=== PATIENT | male | born 1960 | race Caucasian/White ===

== ENCOUNTER → 2016-12-22 | Outpatient (CLI) | payer OTHER ==
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
== END | disposition home or self-care (01) ==
LOC: RADMRIMAIN 20:53
PROVIDERS: ATTEND Family Medicine
DX: M47.22 Other spondylosis with radiculopathy, cervical region (principal); Z98.890 Other specified postprocedural states
CPT/HCPCS: 72156; A9577

== ENCOUNTER 2016-12-26 10:08 | Day surgery (SDC) | payer OTHER ==
[2016-12-21 13:33] VITALS: BMI 24.4
[~2016-12-26 10:08] MED LIST: LACTATED RINGERS 1,000 ML IV SCH; LIDOCAINE 1% 20 ML VIAL (10MG/ML) FOR IV START INTRADERMA PRN
[2016-12-26 10:26] VITALS: TEMP 97.5
[2016-12-26] MEDS ORDERED: LIDOCAINE 1% INJ 10MG/ML (20 ML MDV) ONE (11:08)
[2016-12-26] MEDS ORDERED: PROPOFOL 10 MG/ML 20 ML VIAL IV ONE (11:08)
--- NOTE | 2016-12-26 11:27 | P.GSHP ---
History of Present Illness H&P Date: 12/26/16 Chief Complaint: GERD This is a 56-year-old male referred from Dr. Orlando. Patient presents today for EGD. He has a history of GERD and peptic ulcer disease. 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 , PAIN IN NECK BACK AND LEFT SHOULDER., HERNIA AT UMBILICUS., FREQUENT NIGHT TIME URINATION WITH URGENCY. History of Any Multi-Drug Resistant Organisms: None Reported Past Surgical History: Back Surgery, Hernia Repair, Orthopedic Surgery Additional Past Surgical History / Comment(s): EYE SURGERY (CHILD), LEFT ROTATOR CUFF , NECK SURGERY WITH PLATE & SCREWS, LEFT INGUINAL HERNIA. Past Anesthesia/Blood Transfusion Reactions: No Reported Reaction Past Psychological History: No Psychological Hx Reported Smoking Status: Former smoker Past Alcohol Use History: Occasional Additional Past Alcohol Use History / Comment(s): QUIT SMOKING 8 MONTHS AGO. SMOKED 1 & 1/2 PPD. SMOKED 30-40 YRS. Past Drug Use History: None Reported - Past Family History Father Family Medical History: Myocardial Infarction ([place]) Medications and Allergies Home Medications Medication Instructions Recorded Confirmed Type Cyclobenzaprine [Flexeril] 10 mg PO HS 12/21/16 12/26/16 History HYDROcodone/APAP 10-325MG [[place] 1 tab PO TID PRN 12/21/16 12/26/16 History 10-325] Multivitamins, Thera [Multivitamin] 1 tab PO DAILY 12/21/16 12/21/16 History Omeprazole [PriLOSEC] 20 mg PO AC-BRKFST 12/21/16 12/26/16 History Tamsulosin HCl [Flomax] 0.4 mg PO DIRECTED 12/21/16 12/26/16 History traMADol HCL [Ultram] 50 mg PO DIRECTED PRN 12/21/16 12/26/16 History Allergies Allergy/AdvReac Type Severity Reaction Status Date / Time No Known Allergies Allergy Verified 12/21/16 13:08 Surgical - Exam Vital Signs Temp Pulse Resp BP Pulse Ox 97.5 F L 64 16 152/88 96 12/26/16 10:25 12/26/16 10:25 12/26/16 10:25 12/26/16 10:25 12/26/16 10:25 - General well developed, no distress - Eyes PERRL - ENT normal pinna - Neck no masses - Respiratory normal expansion - Cardiovascular Rhythm: regular - Abdomen Abdomen: soft, non tender Assessment and Plan Plan: GERD. We'll perform EGD
--- NOTE | 2016-12-26 11:35 | P.OP ---
Date of Procedure: 12/26/16 Preoperative Diagnosis: GERD History of peptic ulcer disease Postoperative Diagnosis: Mild antral gastritis No evidence of hiatal hernia Mild esophagitis Procedure(s) Performed: EGD Anesthesia: MAC Surgeon: Sigifredo Karimi Pathology: other (Antrum, esophagus) Disposition: PACU Description of Procedure: The patient's placed on the endoscopy table in the lateral position. He received IV sedation. The gastroscope some placed oropharynx passed in the esophagus and stomach. The scope was then placed through the pylorus. The first and second portion of the duodenum appeared normal. The scope was then brought back into the antrum. This was minimal inflamed a biopsies was performed. The scope was unretroflexed and remainder of the stomach appeared normal. There is no evidence of hiatal hernia. The GE junction was at 47 is. The distal esophagus appeared mildly inflamed a biopsies performed. The proximal esophagus appeared normal. The scope was withdrawn for patient.
[2016-12-26 11:42] VITALS: PULSE 74
[2016-12-26 12:14] VITALS: BP 148/97; RESP 20
--- NOTE | 2016-12-26 17:08 | NM ---
EXAMINATION TYPE: NM hepatobiliary w CCK DATE OF EXAM: 12/26/2016 3:52 PM COMPARISON: NONE HISTORY: 56-year-old male with dull epigastric pain TECHNIQUE: After the intravenous administration of 5.5 mCi Tc 99m Mebrofenin hepatobiliary scintigrap hy is performed. Immediate images post injection. FINDINGS: There is satisfactory initial accumulation of tracer by the liver. The gallbladder is visualized wit hin 8 minutes. The small bowel activity is noted within 90 minutes. At 90 minutes, CCK was administ ered, patient was injected with 1.6 mcg of Kinevac, and gallbladder ejection fraction is calculated a t 89 %, somewhat elevated. IMPRESSION: 1. No scintigraphic evidence for acute/chronic cholecystitis or biliary dyskinesia. 2. However, gallbladder ejection fraction is somewhat elevated. Findings have been described in the s etting of gallbladder hyperkinesia.
== END 2016-12-26 13:41 | disposition home or self-care (01) ==
LOC: ORWHC2ENDO 10:08
PROVIDERS: ATTEND Surgery
DX: K21.0 Gastro-esophageal reflux disease with esophagitis (principal); K29.50 Unspecified chronic gastritis without bleeding; N40.0 Benign prostatic hyperplasia without lower urinary tract symptoms; M54.9 Dorsalgia, unspecified; G89.29 Other chronic pain; Z87.11 Personal history of peptic ulcer disease; Z87.891 Personal history of nicotine dependence; Z79.899 Other long term (current) drug therapy; Z82.49 Family history of ischemic heart disease and other diseases of the circulatory system
CPT/HCPCS: 88305; 78227; 43239; A9537; J2805; J2001; J2704; 99153

== ENCOUNTER → 2017-01-10 | Outpatient (CLI) | payer OTHER ==
--- NOTE | 2017-01-11 21:47 | MR ---
EXAMINATION TYPE: MR lumbar spine wo/w con DATE OF EXAM: 01/10/2017 3:58 PM COMPARISON: NONE HISTORY: Low back pain TECHNIQUE: Multiplanar, multisequence images of the lumbar spine were acquired utilizing 18 mL intravenous Multi Martin gadolinium contrast. L1-L2: Posterior broad-based disc bulge causes minimal anterior mass effect on the thecal sac. No sig nificant foraminal encroachment. L2-L3: Broad-based posterior disc bulge causes mild anterior mass effect on the thecal sac. Circumfer ential extension results in some right-sided foraminal encroachment greater than left. L3-L4: Broad-based posterior disc bulge results in anterior mass effect on the thecal sac causing mil d central stenosis. Circumferential endplate disc complex results in some right-sided greater than le ft foraminal encroachment. Facet arthropathy is present. L4-L5: Posterior broad-based disc bulge causes anterior mass effect on the thecal sac. No significant foraminal encroachment or central stenosis. Facet arthropathy results in lateral recess stenosis L5-S1: Facet arthropathy with hypertrophy ligamentum flavum is present. Posterior broad-based disc bu lge causes mild anterior mass effect on the thecal sac. No significant central stenosis. Lumbar segments are intact. No paraspinal masses are identified. Conus medullaris has a normal appe arance. Loss of intervertebral disc height and signal compatible with disc desiccation, there is mult ilevel spondylosis with endplate discogenic marrow signal change. Cortical cyst associated with the r ight kidney. No abnormal enhancement following contrast administration. IMPRESSION: Degenerative disc disease, multilevel facet arthropathy.
== END | disposition home or self-care (01) ==
LOC: RADMRIMAIN 15:06
PROVIDERS: ATTEND Family Medicine
DX: M51.36 Other intervertebral disc degeneration, lumbar region (principal); M46.86 Other specified inflammatory spondylopathies, lumbar region
CPT/HCPCS: 72158; A9577

== ENCOUNTER → 2017-01-17 | Outpatient (CLI) | payer SELFPAY ==
[2017-01-17 11:27] VITALS: BP 158/90; PULSE 93; RESP 16
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
== END | disposition home or self-care (01) ==
LOC: PNWHC3 11:08
PROVIDERS: ATTEND Specialist
DX: M51.36 Other intervertebral disc degeneration, lumbar region (principal); M47.816 Spondylosis without myelopathy or radiculopathy, lumbar region; M46.96 Unspecified inflammatory spondylopathy, lumbar region; M50.30 Other cervical disc degeneration, unspecified cervical region; M47.812 Spondylosis without myelopathy or radiculopathy, cervical region; M46.92 Unspecified inflammatory spondylopathy, cervical region; M48.02 Spinal stenosis, cervical region; S39.92XA Unspecified injury of lower back, initial encounter; V89.2XXA Person injured in unspecified motor-vehicle accident, traffic, initial encounter; Z87.891 Personal history of nicotine dependence; F12.90 Cannabis use, unspecified, uncomplicated; Z79.891 Long term (current) use of opiate analgesic; K21.9 Gastro-esophageal reflux disease without esophagitis; M19.90 Unspecified osteoarthritis, unspecified site
CPT/HCPCS: 99211

== ENCOUNTER 2017-01-18 06:07 | Day surgery (SDC) | payer OTHER ==
[2017-01-16 13:11] VITALS: BMI 26.4
[~2017-01-18 06:07] MED LIST changes: +DEXAMETHASONE SOD PHOSPHATE 10 MG/ML 1 ML VIAL IV ONE; +HEPARIN SODIUM,PORCINE 5,000 UNIT/ML 1 ML VIAL SQ ONE; +HYDROmorphone 1 MG/ML 1 ML SYRINGE IVP PRN; +ONDANSETRON 4 MG/2 ML VIAL IVP ONE; +SCOPOLAMINE 1.5MG/72HR PATCH TRANSDERM ONE; +ceFAZolin 2 GM in SODIUM CHLORIDE 0.9% 100 ML IVPB ONE
[2017-01-18] MEDS ORDERED: BUPIVACAIN-EPI 0.25%-1:200,000 30 ML VIAL SQ ONE (07:32)
--- NOTE | 2017-01-18 07:40 | P.GSHP ---
History of Present Illness H&P Date: 01/18/17 Chief Complaint: Right upper quadrant pain This a 56-year-old male who presents today for laparoscopic cholecystectomy. Patient's had complaints of right quadrant pain. His recent HIDA scan shows an elevated ejection fraction of 89% consistent with biliary hyperkinesia. - Constitutional Constitutional: Reports as per HPI Past Medical History Past Medical History: GERD/Reflux, Musculoskeletal Disorder, Osteoarthritis (OA) Additional Past Medical History / Comment(s): HERNIATED DISC'S- PLATE & SCREW IN NECK. , PAIN IN NECK BACK AND LEFT SHOULDER., HERNIA AT UMBILICUS., FREQUENT NIGHT TIME URINATION WITH URGENCY. History of Any Multi-Drug Resistant Organisms: None Reported Past Surgical History: Back Surgery, Hernia Repair, Orthopedic Surgery Additional Past Surgical History / Comment(s): EYE SURGERY (CHILD), LEFT ROTATOR CUFF , NECK SURGERY WITH PLATE & SCREWS, LEFT INGUINAL HERNIA. EGD Past Anesthesia/Blood Transfusion Reactions: No Reported Reaction Past Psychological History: No Psychological Hx Reported Smoking Status: Former smoker Past Alcohol Use History: Occasional Additional Past Alcohol Use History / Comment(s): QUIT SMOKING 8 MONTHS AGO. SMOKED 1 & 1/2 PPD. SMOKED 30-40 YRS. Past Drug Use History: None Reported - Past Family History Father Family Medical History: Myocardial Infarction ([place]) Medications and Allergies Home Medications Medication Instructions Recorded Confirmed Type Cyclobenzaprine [Flexeril] 10 mg PO HS 12/21/16 01/18/17 History Multivitamins, Thera [Multivitamin] 1 tab PO DAILY 12/21/16 01/17/17 History Omeprazole [PriLOSEC] 20 mg PO AC-BRKFST 12/21/16 01/17/17 History Tamsulosin HCl [Flomax] 0.4 mg PO BID 12/21/16 01/17/17 History Cyclobenzaprine [Flexeril] 01/17/17 History Allergies Allergy/AdvReac Type Severity Reaction Status Date / Time No Known Allergies Allergy Verified 01/17/17 11:14 Surgical - Exam Vital Signs Temp Pulse Resp BP Pulse Ox 97.2 F L 69 16 132/83 95 01/18/17 06:49 01/18/17 06:49 01/18/17 06:49 01/18/17 06:49 01/18/17 06:49 - General well developed, no distress - Eyes PERRL - ENT normal pinna - Neck no masses - Respiratory normal expansion - Cardiovascular Rhythm: regular - Abdomen Abdomen: soft, non tender Assessment and Plan Plan: Right upper quadrant pain Chronic cholecystitis We'll perform laparoscopic cholecystectomy
[2017-01-18] MEDS ORDERED: NEOSTIGMINE 1 MG/ML 10 ML VIAL ONE (07:46)
[2017-01-18] MEDS ORDERED: fentaNYL (PF) 50 MCG/ML 2 ML AMP ONE (07:46)
[2017-01-18] MEDS ORDERED: MIDAZOLAM 2 MG/2 ML VIAL ONE (07:46)
[2017-01-18] MEDS ORDERED: PROPOFOL 10 MG/ML 20 ML VIAL IV ONE (07:46)
[2017-01-18] MEDS ORDERED: SUCCINYLCHOLINE CHLORIDE 100 MG/5 ML SYR IV ONE (07:46)
[2017-01-18] MEDS ORDERED: KETOROLAC 30 MG/ML 1 ML VIAL ONE (07:46)
[2017-01-18] MEDS ORDERED: GLYCOPYRROLATE 0.2 MG/ML 2 ML VIAL ONE (07:46)
[2017-01-18] MEDS ORDERED: ePHEDrine 50 MG/ML 1 ML AMP ONE (07:46)
[2017-01-18] MEDS ORDERED: LIDOCAINE 1% INJ 10MG/ML (20 ML MDV) ONE (07:46)
[2017-01-18] MEDS ORDERED: ROCURONIUM BROMIDE 10 MG/ML 10 ML VIAL IV ONE (07:46)
--- NOTE | 2017-01-18 08:42 | P.OP ---
Date of Procedure: 01/18/17 Preoperative Diagnosis: Cholecystitis Postoperative Diagnosis: Cholecystitis Procedure(s) Performed: Laparoscopic cholecystectomy Anesthesia: MAC Surgeon: Sigifredo Karimi Pathology: other (Gallbladder) Condition: stable Disposition: PACU Description of Procedure: The patient was placed on the operating table. The patient received a general endotracheal tube anesthesia. The patients abdomen was prepped and draped in the usual sterile fashion. Through an infraumbilical stab incision, the fascia of the anterior abdominal wall was grasped with a pair of Kochers and then the Veress needle was placed in the peritoneal cavity. Position of the Veress needle was confirmed with positive drop test. The abdomen was then insufflated. After adequate insufflation, the 10 mm trocar was placed in the peritoneal cavity. Following this the laparoscope was placed in the peritoneal cavity. The patient was placed in the head-up, right side up position and then a 5 mm trocar was placed in the right lateral and right subcostal position under direct visualization. A 8 mm trocar was placed in the epigastric position. The gallbladder was grasped in the fundus and infundibulum. Traction on the gallbladder was placed in the lateral and the cephalad positions. The triangle of Calot was visualized.. The cystic duct was bluntly dissected until the union of the cystic duct and common bile duct was seen. The cystic duct was then divided and sealed with the Harmonic scissors. A PDS Endoloop was then placed throughout the cystic duct stump. The cystic artery divided and sealed with the Harmonic scissors. The gallbladder was then removed from the liver bed using Harmonic scissors. The gallbladder was then extracted through the epigastric port site. Operative field was checked for any bleeding spots and Harmonic scissors was used to coagulate the liver bed. The abdomen was irrigated. The trocars were removed. The skin was closed using interrupted 3-0 Vicryl suture. Dermabond dressing were applied. The patient tolerated the procedure well.
[2017-01-18] MEDS ORDERED: HYDROmorphone 1 MG/ML 1 ML SYRINGE IVP ONE ×3 (08:53→09:08)
[2017-01-18 08:57] VITALS: TEMP 97
[2017-01-18 09:04] VITALS: RESP 16
[2017-01-18] MEDS ORDERED: LACTATED RINGERS 1,000 ML IV ONE (09:07)
[2017-01-18] MEDS ORDERED: HYDROcodone/APAP 7.5-325MG 1 EACH TAB PO ONE (09:35)
[2017-01-18 10:37] VITALS: BP 127/86; PULSE 64
== END 2017-01-18 11:27 | disposition home or self-care (01) ==
LOC: OR 06:07
PROVIDERS: ATTEND Surgery
DX: K81.1 Chronic cholecystitis (principal); K21.9 Gastro-esophageal reflux disease without esophagitis; M19.90 Unspecified osteoarthritis, unspecified site; G89.29 Other chronic pain; M54.9 Dorsalgia, unspecified; Z79.1 Long term (current) use of non-steroidal anti-inflammatories (NSAID); Z79.891 Long term (current) use of opiate analgesic; Z79.899 Other long term (current) drug therapy; Z87.891 Personal history of nicotine dependence
CPT/HCPCS: 47562; 88304; J2250; J1644; J1100; J2710; J0690; J2405; J2001; J3010; J1885; J1170; J0330; J2704

== ENCOUNTER 2017-02-15 11:12 | Day surgery (SDC) | payer OTHER ==
[2017-02-13 11:21] VITALS: BMI 25.7
[~2017-02-15 11:12] MED LIST changes: -DEXAMETHASONE SOD PHOSPHATE 10 MG/ML 1 ML VIAL IV ONE; -HEPARIN SODIUM,PORCINE 5,000 UNIT/ML 1 ML VIAL SQ ONE; -HYDROmorphone 1 MG/ML 1 ML SYRINGE IVP PRN; -LIDOCAINE 1% 20 ML VIAL (10MG/ML) FOR IV START INTRADERMA PRN; -ONDANSETRON 4 MG/2 ML VIAL IVP ONE; -SCOPOLAMINE 1.5MG/72HR PATCH TRANSDERM ONE; -ceFAZolin 2 GM in SODIUM CHLORIDE 0.9% 100 ML IVPB ONE
[2017-02-15 11:24] VITALS: TEMP 98.2
[2017-02-15] MEDS ORDERED: LIDOCAINE 1% 20 ML VIAL (10MG/ML) FOR IV START INTRADERMA ONE (11:24)
[2017-02-15] MEDS ORDERED: MIDAZOLAM 2 MG/2 ML VIAL ONE (11:49)
[2017-02-15] MEDS ORDERED: fentaNYL (PF) 50 MCG/ML 2 ML AMP ONE (11:49)
[2017-02-15] MEDS ORDERED: BUPIVACAINE (PF) 0.5% 30 ML VIAL ONE (11:49)
[2017-02-15] MEDS ORDERED: TRIAMCINOLONE ACETONIDE 40 MG/ML 1 ML VIAL ONE (11:49)
--- NOTE | 2017-02-15 12:08 | P.PCN ---
Date of Procedure: 02/15/17 Surgeon: Long Cramer Pathology: none sent Condition: stable Disposition: PACU Description of Procedure: PREOPERATIVE DIAGNOSIS: L3-L4, L4-L5, and L5-S1 spondylosis without myelopathy and facet arthropathy. POSTOPERATIVE DIAGNOSIS: L3-L4, L4-L5, and L5-S1 spondylosis without myelopathy and facet arthropathy. PROCEDURE DESCRIPTION: Patient presents for L3, L4 and L5 diagnostic medial branch block #1 under fluoroscopic guidance. The procedure is performed using fluoroscopic guidance during needle placement to assure proper position and maximize safety. ANESTHESIA: Local with 1% lidocaine; conscious sedation EBL: Minimal PROCEDURE INDICATION: Patient with lumbar facet arthropathy signs and symptoms, here for diagnostic medial branch block. Pt does not take any blood thinning medications. PROCEDURE DESCRIPTION: The patient was seen and identified in the preoperative area. Risks, benefits, complications, and alternatives were discussed with the patient (including but not limited to incomplete pain relief, bleeding, infection, nerve damage, and allergies to medications), the patient agreed to proceed with the procedure and signed the consent after all questions were answered. Patient was taken to the OR and time out was completed to verify proper patient, position, laterality of pain, and allergies. Pt was placed in the prone position and a pillow was placed under the abdomen to reduce lumbar lordosis. The lumbosacral area was prepped and draped in the usual sterile fashion. Using oblique fluoroscopy, the eye of the "Gabriel dog" of right L4 vertebral body, which corresponds to the path of the medial branch originating from the level above, which is L3 in this case, was identified. Subsequently, a 22-gauge 3.5-inch spinal needle was inserted under fluoroscopic guidance toward the eye of the "Gabriel dog" of the right L4 vertebral body, corresponding to the junction of the superior articular process and the transverse process of the pedicle of the same level. After needle tip confirmation on lateral view and after negative aspiration for CSF and blood and without paresthesias, 1 mL of a 6 ml solution of 5 ml 0.5% preservative-free bupivacaine and 40 mg Kenalog was injected. Subsequently the needle was withdrawn intact and the same procedure was repeated for the right L4, right L5, left L3, left L4, and left L5 medial branches which together with right L3 medial branch correspond to the sensory innervation of the bilateral L3-L4, L4-L5, and L5-S1 facet joints. Needle was withdrawn intact after each injection. At the end of the procedure, the skin was cleansed and bandages were applied. COMPLICATIONS: None. DISPOSITION/PLAN: The patient taken to the recovery area after the procedure in a stable condition for observation. Patient was reexamined prior to discharge and there were no issues. Patient was discharged home, accompanied by an adult, after meeting discharged criteria. Discharge instructions were give to the patient by the staff. Patient was specifically instructed not to drive today and to rest for the rest of the day. If relief, patient will schedule repeat procedure in 4- 6 weeks.
[2017-02-15] MEDS ORDERED: IV FLUID CONTINUATION 900 ML IV ONE (12:18)
--- NOTE | 2017-02-15 12:20 | FL ---
EXAMINATION TYPE: FL guided pain mgmt statistic DATE OF EXAM: 02/15/2017 12:13 PM HISTORY: Pain BILAT MEDIAL BRANCH BLOCK, FLUORO TIME 8 SEC, 4 IMAGES SCANNED,
[2017-02-15 12:28] VITALS: RESP 18
[2017-02-15 12:38] VITALS: BP 129/87; PULSE 81
== END 2017-02-15 12:58 | disposition home or self-care (01) ==
LOC: ORPAIN 11:12
PROVIDERS: ATTEND Anesthesiology
DX: G89.29 Other chronic pain (principal); M47.816 Spondylosis without myelopathy or radiculopathy, lumbar region; M47.817 Spondylosis without myelopathy or radiculopathy, lumbosacral region; M46.96 Unspecified inflammatory spondylopathy, lumbar region; M51.36 Other intervertebral disc degeneration, lumbar region; M50.30 Other cervical disc degeneration, unspecified cervical region; M47.812 Spondylosis without myelopathy or radiculopathy, cervical region; M46.92 Unspecified inflammatory spondylopathy, cervical region; M48.02 Spinal stenosis, cervical region; Z98.1 Arthrodesis status; M19.90 Unspecified osteoarthritis, unspecified site; K21.9 Gastro-esophageal reflux disease without esophagitis; Z79.891 Long term (current) use of opiate analgesic; Z79.899 Other long term (current) drug therapy; Z87.891 Personal history of nicotine dependence
CPT/HCPCS: 80307; 64493; 64494; 64495; 99152; J2250; J3301; J3010; 80349; 80364

== ENCOUNTER 2017-04-25 22:04 | Emergency (ER) | payer OTHER ==
[2017-04-25 22:30] LABS: Glucose,Whole Blood 94 mg/dL (75-99)
[2017-04-25] MEDS ORDERED: SODIUM CHLORIDE 0.9% 2,000 ML IV ONE (22:56)
[2017-04-25 23:07] LABS: Basophils % (A) 0 %; CH 32.8; CHCM 33.9; Eosinophils # (A) 0.1 k/uL (0-0.7); Eosinophils % (A) 1 %; HCT 40.6 % (39.0-53.0); HDW 2.31; HGB 13.5 gm/dL (13.0-17.5); Luc # (Auto) 0.13; Luc % (Auto) 1; Lymphocytes # (A) 1.6 k/uL (1.0-4.8); Lymphocytes % (A) 15 %; MCH 32.3 pg (25.0-35.0); MCHC 33.3 g/dL (31.0-37.0); MCV 97.1 fL (80.0-100.0); Mean Platelet Volume 6.4; Monocytes # (A) 0.5 k/uL (0-1.0); Monocytes % (A) 5 %; Neutrophils # (A) 7.8 k/uL (1.3-7.7); Neutrophils % (A) 78 %; RBC 4.18 m/uL (4.30-5.90); RDW 13.7 % (11.5-15.5); WBC 10.1 k/uL (3.8-10.6); WBC (Perox) 10.52
[2017-04-25 23:18] LABS: ALT 32 U/L (21-72); AST 29 U/L (17-59); Alkaline Phosphatase 58 U/L (38-126); Anion Gap 14 mmol/L; Blood Urea Nitrogen 13 mg/dL (9-20); Calcium 9.4 mg/dL (8.4-10.2); Carbon Dioxide 22 mmol/L (22-30); Chloride 102 mmol/L (98-107); Glucose 90 mg/dL (74-99); Non-African American GFR(MDRD) >60 (>60 ml/min/1.73 sqM); Potassium 3.8 mmol/L (3.5-5.1); Sodium 138 mmol/L (137-145); Total Bilirubin 1.1 mg/dL (0.2-1.3); Total Protein 7.3 g/dL (6.3-8.2)
--- NOTE | 2017-04-25 23:20 | ED ---
Syncope HPI - General Chief Complaint: Syncope Stated Complaint: Syncope Time Seen by Provider: 04/25/17 22:23 Source: patient Mode of arrival: wheelchair Limitations: no limitations - History of Present Illness Initial Comments: Is a 56-year-old male with no past medical history presents emergency department for an episode of syncope. He states that he was working outside most the day and did not eat or drink most of the day. He states he was having his second bottle of beer sitting on the couch when all of a sudden he started feeling very lightheaded and flushed. He states that this lasted for quite some time and then he was told by his friends that he passed out. He is unsure how long he was out. There was no reported seizure activity. He states he has no history of syncope in the past. He denied any associated chest pressure or shortness of breath prior to the event however afterwards did develop a little bit of chest pressure. He states he still feels very lightheaded at the time. Denies any other complaints. - Related Data Home Medications Medication Instructions Recorded Confirmed Cyclobenzaprine [Flexeril] 10 mg PO TID 12/21/16 02/13/17 Multivitamins, Thera [Multivitamin] 1 tab PO DAILY 12/21/16 02/15/17 Omeprazole [PriLOSEC] 20 mg PO AC-BRKFST 12/21/16 02/13/17 Tamsulosin HCl [Flomax] 0.4 mg PO BID 12/21/16 02/15/17 Previous Rx's Medication Instructions Recorded HYDROcodone/APAP 10-325MG [[place] 1 tab PO Q6HR PRN #120 tab 01/17/17 10-325] Ibuprofen [Motrin] 800 mg PO Q8HR PRN #90 tab 01/17/17 Allergies Allergy/AdvReac Type Severity Reaction Status Date / Time No Known Allergies Allergy Verified 04/25/17 22:21 Review of Systems ROS Statement: Those systems with pertinent positive or pertinent negative responses have been documented in the HPI. ROS Other: All systems not noted in ROS Statement are negative. 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 , PAIN IN NECK BACK AND LEFT SHOULDER., HERNIA AT UMBILICUS., FREQUENT NIGHT TIME URINATION WITH URGENCY. History of Any Multi-Drug Resistant Organisms: None Reported Past Surgical History: Back Surgery, Cholecystectomy, Hernia Repair, Orthopedic Surgery Additional Past Surgical History / Comment(s): EYE SURGERY (CHILD), LEFT ROTATOR CUFF , NECK SURGERY WITH PLATE & SCREWS, LEFT INGUINAL HERNIA. EGD, Colonoscopy Past Anesthesia/Blood Transfusion Reactions: No Reported Reaction Past Psychological History: No Psychological Hx Reported Smoking Status: Former smoker Past Alcohol Use History: Occasional Additional Past Alcohol Use History / Comment(s): QUIT SMOKING 10 MONTHS AGO. SMOKED 1 & 1/2 PPD. SMOKED 30-40 YRS. Past Drug Use History: None Reported - Past Family History Father Family Medical History: Myocardial Infarction ([place]) Additional Family Medical History / Comment(s): "heart problems" General Exam - General Exam Comments Initial Comments: Constitutional: Awake alert Appears comfortable Head: Normocephalic atraumatic Eyes: no conjunctival injection No scleral icterus EOMI Neck: No JVD Supple Heart: Regular rate rhythm normal S1-S2 no murmurs Lungs: Clear to auscultation bilaterally No wheezing No rales Abdomen: Soft nondistended nontender Extremities: Non edematous DP pulses intact Radial pulses intact Neuro: A&Ox3 No focal neurologic deficits Psych: Appropriate mood and affect Limitations: no limitations Course Vital Signs 04/25/17 04/25/17 22:17 22:40 Temperature 97.3 F L Pulse Rate 81 Pulse Rate [ 85 Sitting Hammerer] Pulse Rate [ 86 Standing Hammerer ] Pulse Rate [ 72 Supine Hammerer] Respiratory 16 Rate Blood Pressure 101/55 Blood Pressure 106/68 [Left Arm Sitting] Blood Pressure 106/71 [Left Arm Standing] Blood Pressure 100/63 [Left Arm Supine] O2 Sat by Pulse 96 Oximetry EKG Findings - EKG Comments: EKG Findings:: EKG showing normal sinus rhythm with a rate of 67. No abnormal ST segment changes or T-wave inversions. QTC is 409. Other intervals are normal. No ectopy. Medical Decision Making - Medical Decision Making This is a 56-year-old male presents emergency department for a single episode. Labwork was performed that was unremarkable. The patient received 2 L of fluid while in the emergency department and had much improvement in his symptoms. He states that he was able to stand up and did not feel lightheaded anymore. He states he feels well enough to go home. He is going to follow-up his primary doctor. He can return if he has worsening or changing symptoms or questions were answered. I feel that his syncope is likely due to dehydration from not eating or drinking all day. - Lab Data Result diagrams: 04/25/17 22:34 04/25/17 22:34 Lab Results 04/25/17 04/25/17 04/25/17 Range/Units 22:28 22:34 22:34 WBC 10.1 (3.8-10.6) k/uL RBC 4.18 L (4.30-5.90) m/uL Hgb 13.5 (13.0-17.5) gm/dL Hct 40.6 (39.0-53.0) % MCV 97.1 (80.0-100.0) fL MCH 32.3 (25.0-35.0) pg MCHC 33.3 (31.0-37.0) g/dL RDW 13.7 (11.5-15.5) % Plt Count 315 (150-450) k/uL Neutrophils % 78 % Lymphocytes % 15 % Monocytes % 5 % Eosinophils % 1 % Basophils % 0 % Neutrophils # 7.8 H (1.3-7.7) k/uL Lymphocytes # 1.6 (1.0-4.8) k/uL Monocytes # 0.5 (0-1.0) k/uL Eosinophils # 0.1 (0-0.7) k/uL Basophils # 0.0 (0-0.2) k/uL Sodium 138 (137-145) mmol/L Potassium 3.8 (3.5-5.1) mmol/L Chloride 102 (98-107) mmol/L Carbon Dioxide 22 (22-30) mmol/L Anion Gap 14 mmol/L BUN 13 (9-20) mg/dL Creatinine 1.14 (0.66-1.25) mg/dL Est GFR (MDRD) Af Amer >60 (>60 ml/min/1.73 sqM) Est GFR (MDRD) Non-Af >60 (>60 ml/min/1.73 sqM) Glucose 90 (74-99) mg/dL POC Glucose (mg/dL) 94 (75-99) mg/dL POC Glu Ell Tutor ID MattielyudmilaAdriana Calcium 9.4 (8.4-10.2) mg/dL Total Bilirubin 1.1 (0.2-1.3) mg/dL AST 29 (17-59) U/L ALT 32 (21-72) U/L Alkaline Phosphatase 58 (38-126) U/L Total Creatine Kinase (55-170) U/L CK-MB (CK-2) (0.0-2.4) ng/mL CK-MB (CK-2) Rel Index Troponin I (0.000-0.034) ng/mL Total Protein 7.3 (6.3-8.2) g/dL Albumin 4.8 (3.5-5.0) g/dL 04/25/17 Range/Units 22:34 WBC (3.8-10.6) k/uL RBC (4.30-5.90) m/uL Hgb (13.0-17.5) gm/dL Hct (39.0-53.0) % MCV (80.0-100.0) fL MCH (25.0-35.0) pg MCHC (31.0-37.0) g/dL RDW (11.5-15.5) % Plt Count (150-450) k/uL Neutrophils % % Lymphocytes % % Monocytes % % Eosinophils % % Basophils % % Neutrophils # (1.3-7.7) k/uL Lymphocytes # (1.0-4.8) k/uL Monocytes # (0-1.0) k/uL Eosinophils # (0-0.7) k/uL Basophils # (0-0.2) k/uL Sodium (137-145) mmol/L Potassium (3.5-5.1) mmol/L Chloride (98-107) mmol/L Carbon Dioxide (22-30) mmol/L Anion Gap mmol/L BUN (9-20) mg/dL Creatinine (0.66-1.25) mg/dL Est GFR (MDRD) Af Amer (>60 ml/min/1.73 sqM) Est GFR (MDRD) Non-Af (>60 ml/min/1.73 sqM) Glucose (74-99) mg/dL POC Glucose (mg/dL) (75-99) mg/dL POC Glu Ell Tutor ID Calcium (8.4-10.2) mg/dL Total Bilirubin (0.2-1.3) mg/dL AST (17-59) U/L ALT (21-72) U/L Alkaline Phosphatase (38-126) U/L Total Creatine Kinase 121 (55-170) U/L CK-MB (CK-2) 1.2 (0.0-2.4) ng/mL CK-MB (CK-2) Rel Index 1.0 Troponin I <0.012 (0.000-0.034) ng/mL Total Protein (6.3-8.2) g/dL Albumin (3.5-5.0) g/dL Disposition Clinical Impression: Dehydration, Syncope due to orthostatic hypotension Disposition: HOME SELF-CARE Condition: Stable Instructions: Syncope (ED) Referrals: Pete Orlando Jr, [Primary Care Provider] - 1-2 days
[2017-04-25 23:32] LABS: Creatine Kinase 121 U/L (55-170)
[2017-04-25 23:46] LABS: Creatine Kinase MB 1.2 ng/mL (0.0-2.4); Troponin I <0.012 ng/mL (0.000-0.034)
[2017-04-26 00:28] VITALS: BP 119/79; PULSE 73; RESP 18; TEMP 97.1
== END 2017-04-26 00:26 | disposition home or self-care (01) ==
LOC: EC 22:04
DX: I95.1 Orthostatic hypotension (principal); E86.0 Dehydration; R07.89 Other chest pain; K21.9 Gastro-esophageal reflux disease without esophagitis; M62.9 Disorder of muscle, unspecified; Z87.891 Personal history of nicotine dependence; Z79.899 Other long term (current) drug therapy; Z87.448 Personal history of other diseases of urinary system; Z82.49 Family history of ischemic heart disease and other diseases of the circulatory system
CPT/HCPCS: 36415; 80053; 82550; 82553; 84484; 85025; 93005; 96360; 99284

== ENCOUNTER → 2017-05-15 | Outpatient (CLI) | payer OTHER ==
--- NOTE | 2017-05-15 11:31 | NM ---
EXAMINATION TYPE: NM stress cardiolite complete DATE OF EXAM: 05/15/2017 COMPARISON: NONE HISTORY: Syncope TECHNIQUE: After the intravenous administration of 10.8 mCi Tc 99m Sestamibi - Rest images obtained 45 minutes post injection. The patient exercised using a WAYNE protocol and 1 minute prior to peak exercise was injected with 27.2 mCi Tc 99m Sestamibi - Stress images obtained 5 minutes post injectio n. FINDINGS: There is good uptake of radiopharmaceutical by the left ventricle without fixed defect. The re is no convincing inducible ischemic change. Wall motion is normal ejection fraction is calculated at 63%. IMPRESSION: I DO NOT SEE CONVINCING EVIDENCE OF INDUCIBLE ISCHEMIC CHANGE AT THIS TIME.
--- NOTE | 2017-05-15 11:58 | ECHOF ---
Referral Reason:R55 syncope MEASUREMENTS -------- HEIGHT: 182.9 cm WEIGHT: 86.2 kg BP: RVIDd: 2.8 cm (< 3.3) IVSd: 1.4 cm (0.6 - 1.1) LVIDd: 3.4 cm (3.9 - 5.3) LVPWd: 1.2 cm (0.6 - 1.1) IVSs: 1.4 cm LVIDs: 2.8 cm LVPWs: 1.3 cm LAESV Index (A-L): 24.15 ml/m Ao Diam: 3.7 cm (2.0 - 3.7) AV Cusp: 1.8 cm (1.5 - 2.6) LA Diam: 3.3 cm (2.7 - 3.8) MV EXCURSION: 22.907 mm (> 18.000) MV EF SLOPE: 106 mm/s (70 - 150) EPSS: 0.5 cm MV E Ranjan: 0.58 m/s MV DecT: 219 ms MV A Ranjan: 0.53 m/s MV E/A Ratio: 1.10 RAP: 5.00 mmHg RVSP: 32.43 mmHg FINDINGS -------- Sinus rhythm. This was a technically adequate study. There is mild concentric left ventricular hypertrophy. Overall left ventricular systolic function is low-normal with, an EF between 50 - 55 %. The right ventricle is normal in size. Normal LA size by volume 22+/-6 ml/m2. The right atrial size is normal. The aortic valve is trileaflet, and appears structurally normal. No aortic stenosis or regurgitation. Mild mitral annular calcification present. Mild mitral regurgitation is present. Mild tricuspid regurgitation present. There is no evidence of pulmonary hypertension. The right ventricular systolic pressure, as measured by Doppler, is 32.43mmHg. Trace/mild (physiologic) pulmonic regurgitation. The aortic root size is normal. There is no pericardial effusion. CONCLUSIONS -------- 1. There is mild concentric left ventricular hypertrophy. 2. There is no pericardial effusion. 3. Overall left ventricular systolic function is low-normal with, an EF between 50 - 55 %. 4. Mild mitral annular calcification present. 5. Mild mitral regurgitation is present. 6. Mild tricuspid regurgitation present. 7. There is no evidence of pulmonary hypertension. 8. The right ventricular systolic pressure, as measured by Doppler, is 32.43mmHg. 9. Trace/mild (physiologic) pulmonic regurgitation. 10. The aortic root size is normal. HOUSEKEEPING ASSISTANT: Haylee Mcdowell RDCS
--- NOTE | 2017-05-16 12:23 | PCN ---
DATE OF SERVICE: 05/15/2017 CARDIOLITE STRESS TEST INDICATION: Syncope BASELINE HEART RATE: 63 BASELINE BLOOD PRESSURE: 163.86 MAXIMUM HEART RATE: 150 MAXIMUM BLOOD PRESSURE: 203/100 85% MPHR: 140 100% MPHR: 165 METS: 11,9 MAXIMUM STAGE REACHED: 3 TOTAL EXERCISE TIME: 10:36 Baseline EKG shows sinus rhythm, normal axis, normal interval. Patient exercised on Juanpablo protocol for a total of 10:30 minutes achieving 11.0 METS, 90 % of predicted maximum heart rate without chest pain or diagnostic ST-segment depression. CONCLUSION: 1. Good exercise tolerance. 2. Negative stress test by EKG criteria. 3. Cardiolite portion of this stress test will be reported separately. MTDD
== END | disposition home or self-care (01) ==
LOC: RADNMMAIN 09:04
PROVIDERS: ATTEND Family Medicine
DX: I08.1 Rheumatic disorders of both mitral and tricuspid valves (principal)
CPT/HCPCS: 93017; 93306; 78452; A9500

== ENCOUNTER 2017-07-18 07:59 | Day surgery (SDC) | payer OTHER ==
[2017-07-13 12:14] VITALS: BMI 25.7
[2017-07-18 08:41] VITALS: TEMP 97.1
[2017-07-18] MEDS ORDERED: LIDOCAINE 1% 20 ML VIAL (10MG/ML) FOR IV START INTRADERMA ONE (08:43)
[2017-07-18] MEDS ORDERED: fentaNYL (PF) 50 MCG/ML 2 ML AMP ONE (09:13)
[2017-07-18] MEDS ORDERED: MIDAZOLAM 2 MG/2 ML VIAL ONE (09:13)
[2017-07-18] MEDS ORDERED: GLYCOPYRROLATE 0.2 MG/ML 2 ML VIAL ONE (09:13)
[2017-07-18] MEDS ORDERED: PROPOFOL 10 MG/ML 20 ML VIAL IV ONE (09:13)
[2017-07-18] MEDS ORDERED: LIDOCAINE 1% INJ 10MG/ML (20 ML MDV) ONE (09:13)
--- NOTE | 2017-07-18 09:21 | P.GSHP ---
History of Present Illness H&P Date: 07/18/17 Chief Complaint: GERD, diarrhea This a 56-year-old male who's had issues with GERD. He is also had complaints of abdominal pain and diarrhea. He presents today for EGD colonoscopy. - Constitutional Constitutional: Reports as per HPI Past Medical History Past Medical History: GERD/Reflux, Osteoarthritis (OA) Additional Past Medical History / Comment(s): HERNIATED DISC'S- PLATE & 6 SCREW IN NECK. , FREQUENT NIGHT TIME URINATION WITH URGENCY. hx ulcers, diarrhea/ loose stool, bulging disk in lower back and neck History of Any Multi-Drug Resistant Organisms: None Reported Past Surgical History: Back Surgery, Cholecystectomy, Hernia Repair, Orthopedic Surgery Additional Past Surgical History / Comment(s): EYE SURGERY (CHILD), LEFT ROTATOR CUFF , NECK SURGERY(fusion) WITH PLATE 6 & SCREWS, LEFT INGUINAL HERNIA. EGD, Colonoscopy Past Anesthesia/Blood Transfusion Reactions: No Reported Reaction Past Psychological History: No Psychological Hx Reported Smoking Status: Current every day smoker Past Alcohol Use History: Occasional Additional Past Alcohol Use History / Comment(s): SMOKED 1< 1PPD .SMOKED 30-40 YRS. Past Drug Use History: None Reported - Past Family History Father Family Medical History: Myocardial Infarction ([place]) Additional Family Medical History / Comment(s): "heart problems" Mother Family Medical History: No Reported History Medications and Allergies Home Medications Medication Instructions Recorded Confirmed Type Cyclobenzaprine [Flexeril] 10 mg PO TID PRN 12/21/16 07/13/17 History Multivitamins, Thera [Multivitamin] 1 tab PO DAILY 12/21/16 07/13/17 History Omeprazole [PriLOSEC] 20 mg PO AC-BRKFST 12/21/16 07/13/17 History Tamsulosin HCl [Flomax] 0.4 mg PO BID 12/21/16 07/13/17 History Pregabalin [Lyrica] 50 mg PO BID 07/13/17 07/13/17 History Allergies Allergy/AdvReac Type Severity Reaction Status Date / Time No Known Allergies Allergy Verified 07/13/17 14:39 Surgical - Exam Vital Signs Temp Pulse Resp BP Pulse Ox 97.1 F L 73 18 130/84 95 07/18/17 08:38 07/18/17 08:38 07/18/17 08:38 07/18/17 08:38 07/18/17 08:38 - General well developed, no distress - Eyes PERRL - ENT normal pinna - Neck no masses - Respiratory normal expansion - Abdomen Abdomen: soft, non tender Assessment and Plan Plan: GERD, diarrhea. We'll perform EGD and colonoscopy
--- NOTE | 2017-07-18 09:37 | P.OP ---
Date of Procedure: 07/18/17 Preoperative Diagnosis: GERD Diarrhea Postoperative Diagnosis: Antral gastritis No hiatal hernia Mild esophagitis Normal colon Procedure(s) Performed: EGD Colonoscopy Implants: Anesthesia: MAC Surgeon: Sigifredo Karimi Pathology: other (Antrum, esophagus) Condition: stable Disposition: PACU Indications for Procedure: Operative Findings: Description of Procedure: M PROCEDURE: The patient was placed on the endoscopy table in the lateral position. Digital rectal examination was performed which revealed no abnormalities. The prostate was symmetrical without nodules. Flexible colonoscope was then placed in the patient's anus and passed throughout the entire colon. The ileocecal valve was visualized. The cecum, ascending, transverse, descending and sigmoid colon were normal. The rectum was normal as well. There were no masses, polyps or diverticula noted in the entire colon. Next, the gastroscope was placed oropharynx passed in the esophagus and into the stomach. Scope was then placed through the pylorus. The first and second portion of the duodenum appeared normal. Scope was then brought back the antrum and this appeared mildly inflamed. A biopsies performed. The scope was retroflexed and remainder of the stomach appeared normal. There is no significant hiatal hernia. GE junction was at 40 cm. The distal esophagus appeared mildly inflamed a biopsies performed. The proximal esophagus appeared normal. Scope was withdrawn for patient.
[2017-07-18 09:44] VITALS: RESP 16
[2017-07-18 09:54] VITALS: BP 126/88; PULSE 80
== END 2017-07-18 10:11 | disposition home or self-care (01) ==
LOC: ORWHC2ENDO 07:59
PROVIDERS: ATTEND Surgery
DX: K29.70 Gastritis, unspecified, without bleeding (principal); R19.7 Diarrhea, unspecified; M19.90 Unspecified osteoarthritis, unspecified site; F17.200 Nicotine dependence, unspecified, uncomplicated; N40.0 Benign prostatic hyperplasia without lower urinary tract symptoms; Z79.899 Other long term (current) drug therapy
CPT/HCPCS: 88305; 88342; 45378; 43239; J2250; J2001; J3010; J2704

== ENCOUNTER 2017-07-24 06:34 | Day surgery (SDC) | payer OTHER ==
[2017-07-13 14:51] VITALS: BMI 25.7
[~2017-07-24 06:34] MED LIST changes: +DEXAMETHASONE SOD PHOSPHATE 10 MG/ML 1 ML VIAL IV ONE; +HEPARIN SODIUM,PORCINE 5,000 UNIT/ML 1 ML VIAL SQ ONE; +HYDROmorphone 1 MG/ML 1 ML SYRINGE IVP PRN; +LIDOCAINE 1% 20 ML VIAL (10MG/ML) FOR IV START INTRADERMA PRN; +ONDANSETRON 4 MG/2 ML VIAL IVP ONE; +SCOPOLAMINE 1.5MG/72HR PATCH TRANSDERM ONE; +ceFAZolin 2 GM in SODIUM CHLORIDE 0.9% 100 ML IVPB ONE
[2017-07-24 06:47] VITALS: RESP 16
--- NOTE | 2017-07-24 08:00 | P.GSHP ---
History of Present Illness H&P Date: 07/24/17 Chief Complaint: Incarcerated umbilical hernia This a 56-year-old male who's had complete abdominal pain. Patient seen in the office found have an incarcerated local hernia. He returns today for laparoscopic robotic assistance repair. 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 , FREQUENT NIGHT TIME URINATION WITH URGENCY. hx ulcers, diarrhea/ loose stool, bulging disk in lower back and neck History of Any Multi-Drug Resistant Organisms: None Reported Past Surgical History: Back Surgery, Cholecystectomy, Hernia Repair, Orthopedic Surgery Additional Past Surgical History / Comment(s): EYE SURGERY (CHILD), LEFT ROTATOR CUFF , NECK SURGERY(fusion) WITH PLATE 6 & SCREWS, LEFT INGUINAL HERNIA. EGD, Colonoscopy Past Anesthesia/Blood Transfusion Reactions: No Reported Reaction Past Psychological History: No Psychological Hx Reported Smoking Status: Current every day smoker Past Alcohol Use History: Occasional Additional Past Alcohol Use History / Comment(s): SMOKED 1< 1PPD .SMOKED 30-40 YRS. Past Drug Use History: None Reported - Past Family History Father Family Medical History: Myocardial Infarction ([place]) Additional Family Medical History / Comment(s): "heart problems" Mother Family Medical History: No Reported History Medications and Allergies Home Medications Medication Instructions Recorded Confirmed Type Cyclobenzaprine [Flexeril] 10 mg PO TID PRN 12/21/16 07/24/17 History Multivitamins, Thera [Multivitamin] 1 tab PO DAILY 12/21/16 07/13/17 History Omeprazole [PriLOSEC] 20 mg PO AC-BRKFST 12/21/16 07/24/17 History Tamsulosin HCl [Flomax] 0.4 mg PO BID 12/21/16 07/24/17 History HYDROcodone/APAP 10-325MG [[place] 1 tab PO Q6HR PRN #120 tab 01/17/17 07/24/17 Rx 10-325] Ibuprofen [Motrin] 800 mg PO Q8HR PRN #90 tab 01/17/17 07/13/17 Rx Pregabalin [Lyrica] 50 mg PO BID 07/13/17 07/24/17 History Allergies Allergy/AdvReac Type Severity Reaction Status Date / Time No Known Allergies Allergy Verified 07/13/17 14:39 Surgical - Exam Vital Signs Temp Pulse Resp BP Pulse Ox 98.3 F 78 16 116/72 95 07/24/17 06:45 07/24/17 06:45 07/24/17 06:45 07/24/17 06:45 07/24/17 06:45 - General well developed, no distress - Eyes PERRL - ENT normal pinna, normal nares - Neck no masses - Respiratory normal expansion - Cardiovascular Rhythm: regular - Abdomen Abdomen: soft, non tender Hernia: umbilical (Incarcerated) Assessment and Plan Plan: Incarcerated umbilical hernia. We'll perform laparoscopic robotic assistance repair.
[2017-07-24] MEDS ORDERED: MIDAZOLAM 2 MG/2 ML VIAL ONE (08:03)
[2017-07-24] MEDS ORDERED: NEOSTIGMINE 1 MG/ML 10 ML VIAL ONE (08:03)
[2017-07-24] MEDS ORDERED: KETOROLAC 30 MG/ML 1 ML VIAL ONE (08:03)
[2017-07-24] MEDS ORDERED: fentaNYL (PF) 50 MCG/ML 2 ML AMP ONE (08:03)
[2017-07-24] MEDS ORDERED: GLYCOPYRROLATE 0.2 MG/ML 2 ML VIAL ONE (08:03)
[2017-07-24] MEDS ORDERED: ROCURONIUM BROMIDE 10 MG/ML 10 ML VIAL IV ONE (08:03)
[2017-07-24] MEDS ORDERED: ePHEDrine SULFATE/0.9% NACL/PF 50 MG/5 ML SYRINGE IV ONE (08:03)
[2017-07-24] MEDS ORDERED: LIDOCAINE 1% INJ 10MG/ML (20 ML MDV) ONE (08:03)
[2017-07-24] MEDS ORDERED: PROPOFOL 10 MG/ML 20 ML VIAL IV ONE (08:03)
[2017-07-24] MEDS ORDERED: SUCCINYLCHOLINE CHLORIDE VIAL 200 MG/10 ML VIAL IV ONE (08:03)
[2017-07-24] MEDS ORDERED: LACTATED RINGERS 1,000 ML IV ONE (08:39)
[2017-07-24] MEDS ORDERED: LIDOCAINE 2%-EPI 1:100,000 20 ML VIAL SQ ONE (08:54)
[2017-07-24] MEDS ORDERED: BUPIVACAINE (PF) 0.25% 30 ML VIAL SQ ONE (08:54)
[2017-07-24] MEDS ORDERED: HYDROmorphone 1 MG/ML 1 ML SYRINGE IVP ONE ×5 (09:30→09:54)
[2017-07-24 09:31] VITALS: TEMP 97.9
--- NOTE | 2017-07-24 09:38 | P.OP ---
Date of Procedure: 07/24/17 Preoperative Diagnosis: Incarcerated umbilical hernia Postoperative Diagnosis: Incarcerated umbilical hernia Procedure(s) Performed: Bhavik robotic-assisted repair of incarcerated umbilical hernia Implants: Anesthesia: REGAN Surgeon: Sigifredo Karimi Estimated Blood Loss (ml): 5 Pathology: none sent Condition: stable Disposition: PACU Indications for Procedure: Operative Findings: Description of Procedure: The patient's placed on the operative table in the supine position. He received general anesthesia. His abdomen was prepped and draped in the usual technique. The skin incision sites were anesthetized 1% local Xylocaine. Using 11 blade the skin was incised in the left upper quadrant. And then using an optical 5 mm trocar the pleural cavity was entered. After adequate insufflation the laparoscope placed back into the cavity. And then the 8 mm robotic trochars placed in the left lower quadrant and a 12 mm robotic trochars placed in the left lateral position. The original 5 mm trocar was exchanged for an 8 mm robotic trocar. The patient was then docked to the robot. The patient had incarcerated peritoneal fat in the umbilical hernia. Using hook cautery this was dissected free. The fascial defect was then closed using OV lock suture. Next using a 11 cm round ventral light ST mesh the mesh was secured abdominal wall using 2OV lock lock suture. The patient was then undocked the robot. The needles were retrieved. The fascia of the 12 mm trocar site was closed with a Taye Garzon suture passer and 0 Ethibond suture. The skin was closed interrupted 3-0 Monocryl suture. Dermabond was applied. Patient was sent to recovery in stable condition.
[2017-07-24] MEDS ORDERED: HYDROcodone/APAP 7.5-325MG 1 EACH TAB PO ONE (10:40)
[2017-07-24 11:44] VITALS: BP 146/82; PULSE 66
== END 2017-07-24 12:06 | disposition home or self-care (01) ==
LOC: OR 06:34
PROVIDERS: ATTEND Surgery
DX: K42.0 Umbilical hernia with obstruction, without gangrene (principal); K21.9 Gastro-esophageal reflux disease without esophagitis; F17.200 Nicotine dependence, unspecified, uncomplicated; M19.90 Unspecified osteoarthritis, unspecified site; Z79.899 Other long term (current) drug therapy
CPT/HCPCS: 49653; S2900

== ENCOUNTER 2018-06-14 15:01 | Observation (INO) | payer OTHER ==
[2018-06-14 15:31] LABS: Basophils % (A) 0 %; Eosinophils # (A) 0.1 k/uL (0-0.7); Eosinophils % (A) 2 %; HCT 42.2 % (39.0-53.0); HGB 13.8 gm/dL (13.0-17.5); Lymphocytes # (A) 1.4 k/uL (1.0-4.8); Lymphocytes % (A) 20 %; MCH 31.6 pg (25.0-35.0); MCHC 32.7 g/dL (31.0-37.0); MCV 96.8 fL (80.0-100.0); Mean Platelet Volume 6.3; Monocytes # (A) 0.3 k/uL (0-1.0); Monocytes % (A) 5 %; Neutrophils # (A) 5.1 k/uL (1.3-7.7); Neutrophils % (A) 72 %; Platelet Count 295 k/uL (150-450); RBC 4.36 m/uL (4.30-5.90); RDW 12.7 % (11.5-15.5); WBC 7.1 k/uL (3.8-10.6)
--- NOTE | 2018-06-14 15:37 | ED ---
General Adult HPI - General Chief complaint: Syncope Stated complaint: syncope Time Seen by Provider: 06/14/18 15:19 Source: patient, family, EMS, RN notes reviewed, old records reviewed Mode of arrival: EMS Limitations: no limitations - History of Present Illness Initial comments: 57-year-old male presents for evaluation of syncopal episode. Patient was at the bar, he had had 2 alcoholic drinks. He began feeling very lightheaded with some nausea and the next thing he remembers he was on the floor surrounded by friends. According to his family member he was unconscious just momentarily. He was diaphoretic. Patient denies any chest pain complaints. Denied preceding chest pain or palpitations. No history of cardiac disease. No history of arrhythmia. Patient has chronic medical problems including chronic pain, no history diabetes, no history of kidney disease or heart disease. Patient is to drinking 2 alcoholic beverages which is not atypical. And he ate only a small breakfast. - Related Data Home Medications Medication Instructions Recorded Confirmed Cyclobenzaprine [Flexeril] 10 mg PO TID PRN 12/21/16 06/14/18 Multivitamins, Thera [Multivitamin] 1 tab PO DAILY 12/21/16 06/14/18 Omeprazole [PriLOSEC] 20 mg PO AC-BRKFST 12/21/16 06/14/18 Tamsulosin HCl [Flomax] 0.4 mg PO BID 12/21/16 06/14/18 Pregabalin [Lyrica] 150 mg PO TID PRN 06/14/18 06/14/18 Previous Rx's Medication Instructions Recorded Ibuprofen [Motrin] 800 mg PO Q8HR PRN #90 tab 01/17/17 Allergies Allergy/AdvReac Type Severity Reaction Status Date / Time No Known Allergies Allergy Verified 06/14/18 15:46 Review of Systems ROS Statement: Those systems with pertinent positive or pertinent negative responses have been documented in the HPI. ROS Other: All systems not noted in ROS Statement are negative. 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 , FREQUENT NIGHT TIME URINATION WITH URGENCY. hx ulcers, diarrhea/ loose stool, bulging disk in lower back and neck History of Any Multi-Drug Resistant Organisms: None Reported Past Surgical History: Back Surgery, Cholecystectomy, Hernia Repair, Orthopedic Surgery Additional Past Surgical History / Comment(s): EYE SURGERY (CHILD), LEFT ROTATOR CUFF , NECK SURGERY(fusion) WITH PLATE 6 & SCREWS, LEFT INGUINAL HERNIA. EGD, Colonoscopy Past Anesthesia/Blood Transfusion Reactions: No Reported Reaction Past Psychological History: No Psychological Hx Reported Smoking Status: Current every day smoker Past Alcohol Use History: Occasional Past Drug Use History: None Reported, Marijuana - Past Family History Father Family Medical History: Myocardial Infarction ([place]) Additional Family Medical History / Comment(s): "heart problems" Mother Family Medical History: No Reported History General Exam Limitations: no limitations General appearance: alert, in no apparent distress Head exam: Present: atraumatic, normocephalic Eye exam: Present: normal appearance, PERRL, EOMI Neck exam: Present: tenderness, full ROM Respiratory exam: Present: normal lung sounds bilaterally. Absent: respiratory distress, wheezes, rales Cardiovascular Exam: Present: regular rate, normal rhythm GI/Abdominal exam: Present: soft. Absent: distended, tenderness, guarding Extremities exam: Present: normal inspection, full ROM, normal capillary refill. Absent: pedal edema Neurological exam: Present: alert, oriented X3, CN II-XII intact. Absent: motor sensory deficit Psychiatric exam: Present: normal affect, normal mood Skin exam: Present: warm, intact, diaphoretic Course Vital Signs 06/14/18 06/14/18 06/14/18 15:02 15:40 16:39 Temperature 98.7 F Pulse Rate 85 69 Pulse Rate [ 77 Sitting] Pulse Rate [ 104 H Standing] Pulse Rate [ 65 Supine] Respiratory 18 Rate Blood Pressure 108/67 128/72 Blood Pressure 110/71 [Sitting] Blood Pressure 109/70 [Standing] Blood Pressure 106/64 [Supine] O2 Sat by Pulse 92 L 96 Oximetry EKG Findings - EKG Comments: EKG Findings:: EKG: Normal sinus rhythm, rate is 74, no ST segment elevation, there is artifact in multiple leads although overall this appears nonischemic. RI interval 168, QRS duration 86, QTC 437 Medical Decision Making - Medical Decision Making 57 yo male with syncopal episode. There is history to support some volume depletion. Orthostatic vital signs are positive, blood pressure remains stable however heart rate increases by 40 bpm. He receives IV hydration in the emergency department. Laboratory studies reveal normal CBC, normal CMP, negative troponin. Head CT and C-spine is obtained patient did have a fall, although there was no reported trauma he was complaining of a headache. CT head is negative for intracranial hemorrhage, CT cervical spine shows postsurgical changes with no acute fracture or subluxation. Patient remains symptomatic on reevaluation despite 1500 mL of normal saline. He will be kept in observation for continued IV hydration and reevaluation. - Lab Data Result diagrams: 06/14/18 15:13 06/14/18 15:13 Lab Results 06/14/18 06/14/18 06/14/18 Range/Units 15:13 15:13 15:13 WBC 7.1 (3.8-10.6) k/uL RBC 4.36 (4.30-5.90) m/uL Hgb 13.8 (13.0-17.5) gm/dL Hct 42.2 (39.0-53.0) % MCV 96.8 (80.0-100.0) fL MCH 31.6 (25.0-35.0) pg MCHC 32.7 (31.0-37.0) g/dL RDW 12.7 (11.5-15.5) % Plt Count 295 (150-450) k/uL Neutrophils % 72 % Lymphocytes % 20 % Monocytes % 5 % Eosinophils % 2 % Basophils % 0 % Neutrophils # 5.1 (1.3-7.7) k/uL Lymphocytes # 1.4 (1.0-4.8) k/uL Monocytes # 0.3 (0-1.0) k/uL Eosinophils # 0.1 (0-0.7) k/uL Basophils # 0.0 (0-0.2) k/uL PT (9.0-12.0) sec INR (<1.2) APTT (22.0-30.0) sec Sodium 138 (137-145) mmol/L Potassium 4.1 (3.5-5.1) mmol/L Chloride 106 (98-107) mmol/L Carbon Dioxide 20 L (22-30) mmol/L Anion Gap 12 mmol/L BUN 14 (9-20) mg/dL Creatinine 1.18 (0.66-1.25) mg/dL Est GFR (CKD-EPI)AfAm 79 (>60 ml/min/1.73 sqM) Est GFR (CKD-EPI)NonAf 69 (>60 ml/min/1.73 sqM) Glucose 145 H (74-99) mg/dL Calcium 9.1 (8.4-10.2) mg/dL Magnesium 2.0 (1.6-2.3) mg/dL Total Bilirubin 0.9 (0.2-1.3) mg/dL AST 23 (17-59) U/L ALT 28 (21-72) U/L Alkaline Phosphatase 58 (38-126) U/L Total Creatine Kinase 58 (55-170) U/L CK-MB (CK-2) 0.4 (0.0-2.4) ng/mL CK-MB (CK-2) Rel Index 0.7 Troponin I <0.012 (0.000-0.034) ng/mL Total Protein 5.9 L (6.3-8.2) g/dL Albumin 3.9 (3.5-5.0) g/dL Serum Alcohol mg/dL 06/14/18 06/14/18 Range/Units 15:13 15:13 WBC (3.8-10.6) k/uL RBC (4.30-5.90) m/uL Hgb (13.0-17.5) gm/dL Hct (39.0-53.0) % MCV (80.0-100.0) fL MCH (25.0-35.0) pg MCHC (31.0-37.0) g/dL RDW (11.5-15.5) % Plt Count (150-450) k/uL Neutrophils % % Lymphocytes % % Monocytes % % Eosinophils % % Basophils % % Neutrophils # (1.3-7.7) k/uL Lymphocytes # (1.0-4.8) k/uL Monocytes # (0-1.0) k/uL Eosinophils # (0-0.7) k/uL Basophils # (0-0.2) k/uL PT 10.4 (9.0-12.0) sec INR 1.1 (<1.2) APTT 22.9 (22.0-30.0) sec Sodium (137-145) mmol/L Potassium (3.5-5.1) mmol/L Chloride (98-107) mmol/L Carbon Dioxide (22-30) mmol/L Anion Gap mmol/L BUN (9-20) mg/dL Creatinine (0.66-1.25) mg/dL Est GFR (CKD-EPI)AfAm (>60 ml/min/1.73 sqM) Est GFR (CKD-EPI)NonAf (>60 ml/min/1.73 sqM) Glucose (74-99) mg/dL Calcium (8.4-10.2) mg/dL Magnesium (1.6-2.3) mg/dL Total Bilirubin (0.2-1.3) mg/dL AST (17-59) U/L ALT (21-72) U/L Alkaline Phosphatase (38-126) U/L Total Creatine Kinase (55-170) U/L CK-MB (CK-2) (0.0-2.4) ng/mL CK-MB (CK-2) Rel Index Troponin I (0.000-0.034) ng/mL Total Protein (6.3-8.2) g/dL Albumin (3.5-5.0) g/dL Serum Alcohol <10 mg/dL Disposition Clinical Impression: Dehydration, Syncope due to orthostatic hypotension Disposition: ADMITTED IP TO THIS HOSP Condition: Stable Is patient prescribed a controlled substance at d/c from ED?: No Referrals: Pete Orlando Jr, [Primary Care Provider] - 1-2 days Time of Disposition: 16:49
[2018-06-14 15:40] LABS: Albumin 3.9 g/dL (3.5-5.0); Calcium 9.1 mg/dL (8.4-10.2); INR 1.1 (<1.2); Partial Thromboplastin Time 22.9 sec (22.0-30.0); Potassium 4.1 mmol/L (3.5-5.1); Prothrombin Time 10.4 sec (9.0-12.0); Total Bilirubin 0.9 mg/dL (0.2-1.3); Total Protein 5.9 g/dL (6.3-8.2)
[2018-06-14 15:44] LABS: Creatine Kinase 58 U/L (55-170)
[2018-06-14 15:58] LABS: Creatine Kinase MB 0.4 ng/mL (0.0-2.4); Troponin I <0.012 ng/mL (0.000-0.034)
[2018-06-14] MEDS ORDERED: SODIUM CHLORIDE 0.9% 1,000 ML IV ONE (16:09)
--- NOTE | 2018-06-14 16:21 | XR ---
EXAMINATION TYPE: XR chest 2V DATE OF EXAM: 06/14/2018 COMPARISON: None INDICATION: Syncope TECHNIQUE: Frontal and lateral views of the chest are obtained. FINDINGS: The heart size is normal. The pulmonary vasculature is normal. The lungs are clear. IMPRESSION: 1. No acute pulmonary process.
--- NOTE | 2018-06-14 16:38 | CT ---
EXAMINATION TYPE: CT brain pipe wo con DATE OF EXAM: 06/14/2018 COMPARISON: 10/25/2012 HISTORY: Pain CT DLP: 1651 mGycm, Automated exposure control for dose reduction was used. CONTRAST: None CT of the brain is performed utilizing 3 mm thick sections through the posterior fossa and 3 mm thick sections through the remaining calvarium. Study is performed within 24 hours of arrival to the hospital. No abnormal hyperdensity is present to suggest an acute intracranial hemorrhage. No mass lesion is evident. No acute infarcts are evident. Ventricles and sulci are appropriate for the patient age. Paranasal sinuses and mastoid air cells within the [id number] are clear. IMPRESSIONS: 1. Normal CT brain. CT cervical spine. COMPARISON: None CT of the cervical spine is performed in the axial plane at 2 mm thick sections. Reconstructed image s in the coronal, and sagittal plane are reviewed on the computer. No acute fractures are evident. Vertebral body alignment is straightened Diffuse narrowing of disc height is present. There is cervical fusion at C5-C7 with loss of disc heig ht. Vertebral body heights are preserved. No spinal canal stenosis is evident. Right foraminal stenosis due to uncovertebral joint hypertrophy and facet hypertrophy is present C2-3 . Mild facet hypertrophy is present C3-4 bilaterally. There is anterior cervical fusion C5-C7. Uncove rtebral joint hypertrophy C6-7 has mild bilateral foraminal stenosis. Findings appear stable from com parison. IMPRESSIONS: 1. Degenerative changes and postsurgical change. No acute osseous abnormality cervical spine is evide nt.
[2018-06-14] MEDS ORDERED: NALOXONE 0.4 MG/ML 1 ML VIAL IV PRN (16:50)
[2018-06-14] MEDS: SODIUM CHLORIDE 0.9% 1,000 ML IV SCH (17:40)
[2018-06-14] MEDS: IBUPROFEN 400 MG TAB PO PRN ×2 (18:26→22:28)
[2018-06-14] MEDS: ACETAMINOPHEN TAB 325 MG TAB PO PRN (21:29)
[2018-06-14] MEDS ORDERED: CYCLOBENZAPRINE 10 MG TAB PO PRN (22:12)
[2018-06-14] MEDS: PREGABALIN 75 MG CAP PO PRN (22:28)
[2018-06-15] MEDS: SODIUM CHLORIDE 0.9% 1,000 ML IV SCH ×2 (02:56→12:56)
[2018-06-15] MEDS: ACETAMINOPHEN TAB 325 MG TAB PO PRN (06:25)
[2018-06-15 08:21] LABS: Basophils % (A) 0 %; Eosinophils # (A) 0.1 k/uL (0-0.7); Eosinophils % (A) 1 %; HCT 41.3 % (39.0-53.0); HGB 13.3 gm/dL (13.0-17.5); Lymphocytes # (A) 1.4 k/uL (1.0-4.8); Lymphocytes % (A) 20 %; MCHC 32.3 g/dL (31.0-37.0); MCV 95.9 fL (80.0-100.0); Mean Platelet Volume 6.6; Monocytes # (A) 0.4 k/uL (0-1.0); Monocytes % (A) 6 %; Neutrophils # (A) 4.8 k/uL (1.3-7.7); Neutrophils % (A) 70 %; Platelet Count 271 k/uL (150-450); RDW 12.6 % (11.5-15.5); WBC 6.8 k/uL (3.8-10.6)
[2018-06-15 08:25] LABS: ALT 30 U/L (21-72); AST 17 U/L (17-59); Albumin 3.2 g/dL (3.5-5.0); Alkaline Phosphatase 54 U/L (38-126); Anion Gap 5 mmol/L; Blood Urea Nitrogen 14 mg/dL (9-20); Calcium 8.7 mg/dL (8.4-10.2); Carbon Dioxide 22 mmol/L (22-30); Chloride 113 mmol/L (98-107); Glucose 92 mg/dL (74-99); Potassium 4.5 mmol/L (3.5-5.1); Sodium 140 mmol/L (137-145); Total Bilirubin 0.4 mg/dL (0.2-1.3); Total Protein 5.3 g/dL (6.3-8.2)
[2018-06-15] MEDS: TAMSULOSIN 0.4 MG CAP.ER.24H PO SCH ×2 (09:06→20:56)
[2018-06-15] MEDS: PANTOPRAZOLE 40 MG TABLET PO SCH (09:35)
--- NOTE | 2018-06-15 10:38 | P.HPIM ---
History of Present Illness H&P Date: 06/15/18 Chief Complaint: Syncope This is a pleasant 57-year-old white male. He sees my partner, Dr. Pete Orlando. Yesterday, while having lunch of 3 barbecue pork sliders, and 2 rum and Cokes, he began feeling shaky and weak. His friends report his left arm trembling. This went on for 10 minutes or so. He tried some orange juice. He eventually fell off his barstool and his friends lowered him to the ground. He had a loss of consciousness for a moment or 2. He felt cold, nauseated and sweaty. He denied any chest pains, pressures, palpitations,, or vomiting at that time. He denied any confusion around the episode. Indicates he was able to answer all the questions his friends were asking him. He states his friends indicated no tonic clonic type activity. He was then brought to the emergency room via EMS. He was found to be hypotensive initially, which resolved. ER physician reports less trouble positive orthostatic blood pressures. Patient reports his glucose was 140 per the EMS Tech. Reports a similar episode several months ago. He had a 2-D echo and Cardiolite stress test 05/15/2017 which were essentially negative. 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 , FREQUENT NIGHT TIME URINATION WITH URGENCY. hx ulcers, diarrhea/ loose stool, bulging disk in lower back and neck, lt lazy eye History of Any Multi-Drug Resistant Organisms: None Reported Past Surgical History: Back Surgery, Cholecystectomy, Hernia Repair, Orthopedic Surgery Additional Past Surgical History / Comment(s): EYE SURGERY (CHILD), LEFT ROTATOR CUFF , NECK SURGERY(fusion) WITH PLATE 6 & SCREWS, LEFT INGUINAL HERNIA. EGD, Colonoscopy, umb hernia repair Past Anesthesia/Blood Transfusion Reactions: No Reported Reaction Smoking Status: Current every day smoker - Past Family History Father Family Medical History: Myocardial Infarction ([place]) Additional Family Medical History / Comment(s): "heart problems" Mother Family Medical History: No Reported History Medications and Allergies Home Medications Medication Instructions Recorded Confirmed Type Cyclobenzaprine [Flexeril] 10 mg PO TID PRN 12/21/16 06/14/18 History Multivitamins, Thera [Multivitamin] 1 tab PO DAILY 12/21/16 06/14/18 History Omeprazole [PriLOSEC] 20 mg PO AC-BRKFST 12/21/16 06/14/18 History Tamsulosin HCl [Flomax] 0.4 mg PO BID 12/21/16 06/14/18 History Ibuprofen [Motrin] 800 mg PO Q8HR PRN #90 tab 01/17/17 06/14/18 Rx Pregabalin [Lyrica] 150 mg PO TID PRN 06/14/18 06/14/18 History Allergies Allergy/AdvReac Type Severity Reaction Status Date / Time No Known Allergies Allergy Verified 06/14/18 15:46 Physical Exam Vitals: Vital Signs Temp Pulse Pulse Pulse Pulse Resp BP 06/15/18 09:32 06/15/18 06:49 96.9 F L 60 18 06/15/18 00:00 20 06/14/18 21:00 98 F 75 20 06/14/18 18:29 98.0 F 67 18 152/89 06/14/18 17:09 68 18 132/87 06/14/18 16:39 69 128/72 06/14/18 15:40 77 104 H 65 06/14/18 15:02 98.7 F 85 18 108/67 BP BP BP BP Pulse Ox 06/15/18 09:32 96 06/15/18 06:49 129/75 96 06/15/18 00:00 06/14/18 21:00 128/81 96 06/14/18 18:29 97 06/14/18 17:09 98 06/14/18 16:39 96 06/14/18 15:40 110/71 109/70 106/64 06/14/18 15:02 92 L Intake and Output 06/14/18 06/15/18 06/15/18 22:59 06:59 14:59 Intake Total 200 Balance 200 Intake: Oral 200 Other: Weight 94.347 kg 94.347 kg GENERAL: Well-appearing, well-nourished and in no acute distress. HEAD: Atraumatic, normocephalic. EYES: Pupils equal round and reactive to light, extraocular movements intact, sclera anicteric, conjunctiva are normal. ENT:nares patent, oropharynx clear without exudates. Moist mucous membranes. NECK: Normal range of motion, supple without lymphadenopathy or JVD, no thyromegaly LUNGS: Breath sounds clear to auscultation bilaterally and equal. No wheezes rales or rhonchi. HEART: Regular rate and rhythm without murmurs, rubs or gallops.S1S2 Normal ABDOMEN: Soft, nontender, normoactive bowel sounds. No guarding, no rebound. No masses appreciated. EXTREMITIES: Normal range of motion, no pitting or edema. No clubbing or cyanosis. NEUROLOGICAL: Cranial nerves II through XII grossly intact. Normal speech, normal gait. PSYCH: Normal mood, normal affect. SKIN: Warm, Dry, normal turgor, no rashes or lesions noted. Results CBC & Chem 7: 06/15/18 07:39 06/15/18 07:39 Labs: Abnormal Lab Results - Last 24 Hours (Table) 06/14/18 06/15/18 Range/Units 15:13 07:39 Chloride 113 H (98-107) mmol/L Carbon Dioxide 20 L (22-30) mmol/L Glucose 145 H (74-99) mg/dL Total Protein 5.9 L 5.3 L (6.3-8.2) g/dL Albumin 3.2 L (3.5-5.0) g/dL Chest x-ray: report reviewed (No acute process) CT Scan - head: report reviewed (Normal CT brain, neck shows degenerative changes and postsurgical changes.) Thrombosis Risk Factor Assmnt - DVT/VTE Prophylaxis DVT/VTE Prophylaxis: Low risk, early ambulation encouraged - Choose All That Apply Any of the Below Risk Factors Present?: Yes Each Factor Represents 1 point: Age 41-60 years Thrombosis Risk Factor Assessment Total Risk Factor Score: 1 Thrombosis Risk Factor Assessment Level: Low Risk Assessment and Plan (1) Syncopal episodes Current Visit: Yes Status: Acute Code(s): R55 - SYNCOPE AND COLLAPSE SNOMED Code(s): 436028966 (2) Weak Current Visit: Yes Status: Acute Code(s): R53.1 - WEAKNESS SNOMED Code(s) : 50460727 (3) Chronic back pain Current Visit: Yes Status: Acute Code(s): M54.9 - DORSALGIA, UNSPECIFIED; G89.29 - OTHER CHRONIC PAIN SNOMED Code(s): 998808512 (4) GERD (gastroesophageal reflux disease) Current Visit: Yes Status: Acute Code(s): K21.9 - GASTRO-ESOPHAGEAL REFLUX DISEASE WITHOUT ESOPHAGITIS SNOMED Code(s): 505796516 Plan: I will consult cardiology. I'll order 2-D echo, EEG, serial troponins, repeat labs in a.m., continue telemetry, he'll be reevaluated in the next 24 hours.
[2018-06-15 12:43] LABS: T4, Free (Free Thyroxine) 1.15 ng/dL (0.78-2.19)
[2018-06-15] MEDS: IBUPROFEN 400 MG TAB PO PRN ×2 (12:53→18:50)
--- NOTE | 2018-06-15 13:18 | US ---
EXAMINATION TYPE: US carotid duplex BILAT DATE OF EXAM: 06/15/2018 COMPARISON: NONE CLINICAL HISTORY: syncope. Syncope EXAM MEASUREMENTS: RIGHT: Peak Systolic Velocity (PSV) cm/sec ----- Right CCA: 82.3 ----- Right ICA: 91.8 ----- Right ECA: 91.8 ICA/CCA ratio: 1.1 RIGHT: End Diastole cm/sec ----- Right CCA: 28.5 ----- Right ICA: 33.5 ----- Right ECA: 16.7 LEFT: Peak Systolic Velocity (PSV) cm/sec ----- Left CCA: 79.0 ----- Left ICA: 81.2 ----- Left ECA: 96.9 ICA/CCA ratio: 1.0 LEFT: End Diastole cm/sec ----- Left CCA: 21.9 ----- Left ICA: 30.7 ----- Left ECA: 16.7 VERTEBRALS (direction of flow): Right Vertebral: Antegrade Left Vertebral: Antegrade Rhythm: Normal No significant stenosis seen IMPRESSION: I DO NOT SEE EVIDENCE OF A HEMODYNAMICALLY SIGNIFICANT STENOSIS IN EITHER CAROTID SYSTEM. Criteria for Assigning % of Stenosis / Diameter reduction (Estimation based on the indirect measurements of the internal carotid artery velocities (ICA PSV). 1. Normal (no stenosis)=ICA PSV < 125 cm/s: ratio < 2.0: ICA EDV<40 cm/s. 2. Less than 50% stenosis=ICA PSV < 125 cm/s: ratio < 2.0: ICA EDV<40 cm/s. 3. 50 to 69% stenosis=ICA PSV of 125 to 230 cm/s: ration 2.0 ? 4.0: ICA EDV 40-100 cm/s. 4. Greater than 70% stenosis to near occlusion= ICA PSV > 230 cm/s: ratio > 4.0: ICA EDV > 100 cm/s. 5. Near occlusion= ICA PSV velocities may be low or undetectable: variable ratio and ICA EDV. 6. Total occlusion=unable to detect flow.
--- NOTE | 2018-06-15 15:00 | ECHOF ---
Referral Reason:syncope MEASUREMENTS -------- HEIGHT: 180.3 cm WEIGHT: 94.3 kg BP: 129/75 IVSd: 1.2 cm (0.6 - 1.1) LVIDd: 2.9 cm (3.9 - 5.3) LVPWd: 1.3 cm (0.6 - 1.1) IVSs: 1.8 cm LVIDs: 1.4 cm LVPWs: 1.7 cm Ao Diam: 3.7 cm (2.0 - 3.7) AV Cusp: 2.6 cm (1.5 - 2.6) LA Diam: 3.5 cm (2.7 - 3.8) MV EXCURSION: 17.007 mm (> 18.000) MV EF SLOPE: 98 mm/s (70 - 150) EPSS: 0.3 cm MV E Ranjan: 0.84 m/s MV DecT: 328 ms MV A Ranjan: 0.46 m/s MV E/A Ratio: 1.85 RAP: 5.00 mmHg RVSP: 22.12 mmHg FINDINGS -------- Sinus rhythm. This was a technically good study. The left ventricular size is normal. There is mild concentric left ventricular hypertrophy. Overa ll left ventricular systolic function is normal with, an EF between 55 - 60 %. The right ventricle is normal in size and function. The left atrium is normal in size. The right atrium is normal in size. The aortic valve is trileaflet, and appears structurally normal. No aortic stenosis or regurgitation. The mitral valve is normal. There is trace mitral regurgitation. Trace tricuspid regurgitation present. The right ventricular systolic pressure, as measured by Dopp ler, is 22.12mmHg. There is no pulmonic regurgitation present. The aortic root size is normal. There is no pericardial effusion. CONCLUSIONS -------- 1. Sinus rhythm. 2. This was a technically good study. 3. The left ventricular size is normal. 4. There is mild concentric left ventricular hypertrophy. 5. Overall left ventricular systolic function is normal with, an EF between 55 - 60 %. 6. The left atrium is normal in size. 7. The aortic valve is trileaflet, and appears structurally normal. No aortic stenosis or regurgitati on. 8. There is trace mitral regurgitation. 9. Trace tricuspid regurgitation present. 10. The right ventricular systolic pressure, as measured by Doppler, is 22.12mmHg. 11. There is no pulmonic regurgitation present. 12. The aortic root size is normal. 13. There is no pericardial effusion. RAIL ASSEMBLER: Juani Limon RDCS
--- NOTE | 2018-06-15 17:11 | CONS ---
CONSULTATION ATTENDING: Dr. Orlando Mr. Denny is a 57-year-old male with no prior documented history of cardiac disease who yesterday while having lunch after having 2 alcoholic drinks, felt dizzy, warm and tried to put his head down but subsequently had a syncopal episode for about a minute. When he came to he was weak all over, but no localized weakness. No tonic-clonic activity and no loss of bladder control. He did not feel any palpitations. He said he had some chest tightness, but he is not quite sure if it was before or after. He underwent a stress test and an echocardiogram in April of last year and there was no evidence of significant abnormality with a good exercise tolerance. The patient has no prior cardiac history, although he had an episode of syncope about a year ago. At that time, it was thought to be related to dehydration and not eating well. He has been under recent amount of stress because of illness in his ex-. He denies any PND, orthopnea and he has occasional peripheral edema. He has rare palpitation. He has no significant dyspnea on exertion. His coronary risk factors are negative for hypertension, hyperlipidemia, or diabetes. He smokes half a pack a day. MEDICATION: Include Flomax 0.4 mg twice a day, Lyrica, Prilosec, multivitamin, Motrin, and Flexeril on a p.r.n. basis. REVIEW OF SYSTEMS: RESPIRATORY SYSTEM: No recent wheezing. No cough. No history of obstructive lung disease. GI SYSTEM: He has history of . No recent GI bleeding. SYSTEM: No dysuria or hematuria. NERVOUS SYSTEM: No stroke or seizure. PHYSICAL EXAMINATION: He is a 57-year-old male, alert, oriented, in no apparent distress. Blood pressure 129/70 with a heart in 60s. On presentation, he had no orthostatic changes. HEAD: Normocephalic. EYES: Sclerae anicteric. NECK: Good upstroke. No bruits. No venous distention. LUNGS: Clear to auscultation. HEART: Regular rate and rhythm. S1, S2. No S3. No S4. No murmur or rub. ABDOMEN: Soft, nontender. Positive bowel sounds. No organomegaly. EXTREMITIES: No edema. Intact distal pulses. LAB DATA: On presentation, BUN and creatinine 14 and 1.1, today 14 and 0.81. Hemoglobin of 13.3. TSH 0.452 with a free T4 of 1.15. EKG revealed a sinus mechanism with a normal axis and intervals. Normal echocardiogram. Carotid ultrasound revealed no acute changes. IMPRESSION: 1. Syncopal episode of unclear etiology. Could be related to vasodilator and a drop in the blood pressure exacerbated by the alcohol. 2. History of chronic tobacco use. RECOMMENDATION: I have asked him to increase his level activity and ambulate. We will follow his heart rate and blood pressure. If there is no significant abnormalities, then we will continue clinical observation. Thank you for this consult. We will follow with you. MMODL / IJN: [id number] /
[2018-06-15 17:12] LABS: Appearance,Urine Clear (Clear); Bilirubin,Urine Negative (Negative); Blood,Urine Negative (Negative); Color,Urine Light Yellow; Glucose,Urine (UA) Negative (Negative); Ketones,Urine Negative (Negative); Leukocyte Esterase,Urine Negative (Negative); Nitrite,Urine Negative (Negative); Protein,Urine Negative (Negative); Specific Gravity,Urine 1.007 (1.001-1.035); Urobilinogen,Urine <2.0 mg/dL (<2.0)
[2018-06-15 17:32] LABS: Hemoglobin A1C 5.4 % (4.0-6.0)
[2018-06-15] MEDS: PREGABALIN 75 MG CAP PO PRN (21:19)
[2018-06-16 00:28] VITALS: RESP 20
[2018-06-16] MEDS: SODIUM CHLORIDE 0.9% 1,000 ML IV SCH ×2 (00:54→08:05)
[2018-06-16] MEDS: ACETAMINOPHEN TAB 325 MG TAB PO PRN (06:57)
[2018-06-16] MEDS: PREGABALIN 75 MG CAP PO PRN (06:57)
[2018-06-16 07:49] VITALS: BP 118/77; PULSE 63; TEMP 97.1
[2018-06-16] MEDS: PANTOPRAZOLE 40 MG TABLET PO SCH (07:59)
[2018-06-16] MEDS: TAMSULOSIN 0.4 MG CAP.ER.24H PO SCH (08:00)
[2018-06-16] MEDS: IBUPROFEN 400 MG TAB PO PRN (08:01)
[2018-06-16 10:32] LABS: Basophils % (A) 0 %; Eosinophils # (A) 0.1 k/uL (0-0.7); Eosinophils % (A) 2 %; HCT 42.6 % (39.0-53.0); HGB 13.8 gm/dL (13.0-17.5); Lymphocytes # (A) 1.6 k/uL (1.0-4.8); Lymphocytes % (A) 19 %; MCH 31.6 pg (25.0-35.0); MCHC 32.4 g/dL (31.0-37.0); MCV 97.6 fL (80.0-100.0); Mean Platelet Volume 6.3; Monocytes # (A) 0.4 k/uL (0-1.0); Monocytes % (A) 5 %; Neutrophils # (A) 6.1 k/uL (1.3-7.7); Neutrophils % (A) 72 %; Platelet Count 299 k/uL (150-450); RBC 4.36 m/uL (4.30-5.90); RDW 12.7 % (11.5-15.5); WBC 8.4 k/uL (3.8-10.6)
[2018-06-16 10:46] LABS: Anion Gap 6 mmol/L; Blood Urea Nitrogen 9 mg/dL (9-20); Carbon Dioxide 24 mmol/L (22-30); Chloride 110 mmol/L (98-107); Glucose 87 mg/dL (74-99); Potassium 4.3 mmol/L (3.5-5.1); Sodium 140 mmol/L (137-145)
--- NOTE | 2018-06-16 12:02 | P.DS ---
Providers Date of admission: 06/14/18 16:50 Expected date of discharge: 06/16/18 Attending physician: Pete Orlando Consults: 06/15/18 09:56 Consult Physician Routine Consulting Provider: Bela Morales Consult Reason/Comments: syncope Do you want consulting provider notified?: Yes Primary care physician: Pete Orlando - Discharge Diagnosis(es) (1) Syncopal episodes Current Visit: Yes Status: Acute (2) Weak Current Visit: Yes Status: Acute (3) Chronic back pain Current Visit: Yes Status: Acute (4) GERD (gastroesophageal reflux disease) Current Visit: Yes Status: Acute Hospital Course: his is a pleasant 57-year-old white male. He sees my partner, Dr. Pete Orlando. Yesterday, while having lunch of 3 barbecue pork sliders, and 2 rum and Cokes, he began feeling shaky and weak. His friends report his left arm trembling. This went on for 10 minutes or so. He tried some orange juice. He eventually fell off his barstool and his friends lowered him to the ground. He had a loss of consciousness for a moment or 2. He felt cold, nauseated and sweaty. He denied any chest pains, pressures, palpitations,, or vomiting at that time. He denied any confusion around the episode. Indicates he was able to answer all the questions his friends were asking him. He states his friends indicated no tonic clonic type activity. He was then brought to the emergency room via EMS. He was found to be hypotensive initially, which resolved. ER physician reports less trouble positive orthostatic blood pressures. Patient reports his glucose was 140 per the EMS Tech. Reports a similar episode several months ago. He had a 2-D echo and Cardiolite stress test 05/15/2017 which were essentially negative. 06/16/2018: 2-D echo and carotid Doppler essentially normal. Cardiology did not feel there is any significant abnormalities. EEG was unable to be performed for at least the next 2 days, so will be performed outpatient. Laboratory studies were essentially normal except for a suppressed TSH of 0.452 however that free T4 was normal at 1.15. Telemetry has been essentially normal showing sinus rhythm, with no tachycardia cardia is, no bradycardias, no significant arrhythmias. This time he'll be sent home to follow up outpatient cardiology, PCP, and for EEG. Patient Condition at Discharge: Stable Plan - Discharge Summary Discharge Rx Participant: Yes New Discharge Prescriptions: New Acetaminophen Tab [Tylenol] 650 mg PO Q6HR PRN tab PRN Reason: Mild Pain Or Fever > 100.5 Ibuprofen [Motrin] 400 mg PO Q6HR PRN tab PRN Reason: Mild Pain Or Fever > 100.5 Continue Omeprazole [PriLOSEC] 20 mg PO AC-BRKFST Cyclobenzaprine [Flexeril] 10 mg PO TID PRN PRN Reason: relaxant Tamsulosin HCl [Flomax] 0.4 mg PO BID Multivitamins, Thera [Multivitamin (formulary)] 1 tab PO DAILY Ibuprofen [Motrin] 800 mg PO Q8HR PRN #90 tab PRN Reason: Pain Pregabalin [Lyrica] 150 mg PO TID PRN PRN Reason: Pain Discharge Medication List Cyclobenzaprine [Flexeril] 10 mg PO TID PRN 12/21/16 [History] Multivitamins, Thera [Multivitamin (formulary)] 1 tab PO DAILY 12/21/16 [History ] Omeprazole [PriLOSEC] 20 mg PO AC-BRKFST 12/21/16 [History] Tamsulosin HCl [Flomax] 0.4 mg PO BID 12/21/16 [History] Ibuprofen [Motrin] 800 mg PO Q8HR PRN #90 tab 01/17/17 [Rx] Pregabalin [Lyrica] 150 mg PO TID PRN 06/14/18 [History] Acetaminophen Tab [Tylenol] 650 mg PO Q6HR PRN tab 06/16/18 [Rx] Ibuprofen [Motrin] 400 mg PO Q6HR PRN tab 06/16/18 [Rx] Follow up Appointment(s)/Referral(s): Bela Morales MD [STAFF PHYSICIAN] - 3 Weeks Pete Orlando Jr, DO [Primary Care Provider] - 1-2 days Patient Instructions/Handouts: Ambulatory Electroencephalogram (GEN) Discharge Disposition: HOME SELF-CARE
--- NOTE | 2018-06-16 14:08 | P.PN ---
Subjective Mr. Denny is seen and examined sitting up in bed in no acute distress. He initially was seen in consultation for symptoms of generalized weakness and syncope. He denies any further symptoms of dizziness. He has been up ambulating without difficulty. He denies chest pain, shortness of breath, palpitations, nausea, vomiting or diaphoresis. His syncope was thought to be related to a dehydration and not eating well. 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 Echocardiogram reveals preserved left ventricular systolic function with ejection fraction 55-60%. No evidence of valvular heart disease. Blood pressure 118/77 heart rate 63 afebrile maintaining oxygen saturation on room air. Laboratory data reviewed, hemoglobin 13.8, platelets 299, sodium 140, potassium 4.3, creatinine 0.9. Objective - Vital Signs Vital signs: Vital Signs Temp 97.1 F L 06/16/18 06:00 Pulse 63 06/16/18 06:00 Resp 20 06/16/18 06:00 BP 118/77 06/16/18 06:00 Pulse Ox 94 L 06/16/18 06:00 Intake & Output 06/15/18 06/16/18 06/16/18 18:59 06:59 18:59 Intake Total 300 Balance 300 Intake: Oral 300 Other: Voiding Method Toilet # Voids 2 1 - Exam GENERAL: Well-appearing, well-nourished and in no acute distress. NECK: Supple without JVD or thyromegaly. LUNGS: Breath sounds clear to auscultation bilaterally. Respiration equal and unlabored. No wheezes, rales or rhonchi. HEART: Regular rate and rhythm without murmurs, rubs or gallops. S1 and S2 heard. EXTREMITIES: Normal range of motion, no edema. No clubbing or cyanosis. Peripheral pulses intact. - Labs CBC & Chem 7: 06/16/18 10:20 06/16/18 10:20 Labs: Abnormal Lab Results - Last 24 Hours (Table) 06/16/18 Range/Units 10:20 Chloride 110 H (98-107) mmol/L Assessment and Plan Assessment: ASSESSMENT Syncope, unclear etiology. Could be related to vasodilatation and dry and blood pressure exacerbated by alcohol and dehydration Chronic nicotine dependence History of marijuana use PLAN We will further symptoms of dizziness, presyncope or syncope. Vital signs of been stable. He is stable from a cardiac perspective. Follow-up with Dr. Morales in 2-3 weeks for outpatient stress testing. Nurse Practitioner note has been reviewed, I agree with a documented findings and plan of care. Patient was seen and examined.
== END 2018-06-16 12:34 | disposition home or self-care (01) ==
LOC: EC 15:01 → 4MS4W 16:50
PROVIDERS: ADMIT Family Medicine; ATTEND Family Medicine
DX: R55 Syncope and collapse (principal); E86.0 Dehydration; R61 Generalized hyperhidrosis; R53.1 Weakness; R11.0 Nausea; R07.89 Other chest pain; R42 Dizziness and giddiness; G89.29 Other chronic pain; M54.9 Dorsalgia, unspecified; I95.9 Hypotension, unspecified; N42.9 Disorder of prostate, unspecified; F17.210 Nicotine dependence, cigarettes, uncomplicated; M19.90 Unspecified osteoarthritis, unspecified site; K21.9 Gastro-esophageal reflux disease without esophagitis; M51.26 Other intervertebral disc displacement, lumbar region; Z79.899 Other long term (current) drug therapy; Z90.49 Acquired absence of other specified parts of digestive tract; Z98.1 Arthrodesis status; Z82.49 Family history of ischemic heart disease and other diseases of the circulatory system
CPT/HCPCS: 99285 ×2; 96360 ×2; 96361 ×2; 36415; 94760; 93005; 93306; 84439; 80053 ×2; 80048; 84443; 82550; 82553; 83735 ×2; 84484; 85025 ×3; 85610; 85730; 81003; 80320; 83036; 71046; 93880; 72125; 70450; G0378 ×3

== ENCOUNTER → 2018-07-03 | Outpatient (CLI) | payer OTHER ==
--- NOTE | 2018-07-03 23:23 | EEG ---
ELECTROENCEPHALOGRAM REPORT AGE: 57. REQUESTING PHYSICIAN: Dr. Orlando. OBJECTIVE: This is a 19 channel reformattable EEG in the evaluation of a 57-year-old male with syncopal episode. EEG FINDINGS: The resting alert record is characterized as 10 Hz posterior dominant background activity which is well developed, formed and sustained of moderate voltage 10-25 microvolts and radiated to the central head regions bilaterally. Bifrontal low voltage fast activity predominates. As the record progresses, there is drowsiness and significant amount of stage 2 sleep is noted with symmetric vertex sharp waves. There is symmetric spindling. The main feature of this record is intermittent slowing and sharp waves occurring in the left anterior temporal region. This is seen intermittently throughout the record. Slowing generally lasting less than 1 second duration. Photo stimulus is performed showing a symmetric driving response. There were no generalized paroxysmal discharges. IMPRESSION: This is an abnormal sleep EEG significant for intermittent persistent sharp wave activity in the left anterior temporal region. These findings are suggestive for cortical and subcortical disturbance of neural function and associated seizure potential. Other features of this EEG are unremarkable for the state of the patient. MMODL / IJN: [id number] /
== END | disposition home or self-care (01) ==
LOC: NEUROMAIN 12:53
PROVIDERS: ATTEND Family Medicine
DX: R94.01 Abnormal electroencephalogram [EEG] (principal); R55 Syncope and collapse
CPT/HCPCS: 95819

== ENCOUNTER 2021-01-29 20:06 | Emergency (ER) | payer OTHER ==
[2021-01-29 20:14] VITALS: RESP 18
[2021-01-29] MEDS ORDERED: SODIUM CHLORIDE 0.9% 1,000 ML IV STA (20:43)
--- NOTE | 2021-01-29 21:25 | CT ---
EXAMINATION TYPE: CT brain cspine wo con DATE OF EXAM: 01/29/2021 COMPARISON: 06/14/2018 HISTORY: syncopeal fall CT DLP: 1371.8 mGycm Automated exposure control for dose reduction was used. Ventricles have normal size. There is no mass effect nor midline shift. There is no sign of intracran ial hemorrhage. The calvarium is intact. Skull base is intact. There is normal aeration of the mastoi d sinuses. There is anterior fusion surgery in the cervical spine and C4-C7. There is mild multilevel hypertroph ic facet arthropathy. Prevertebral soft tissues are intact. There is anterior spurring at C4-5. IMPRESSION: Negative CT scan of the brain. No acute intracranial abnormality. Spondylotic changes in previous surgery in the cervical spine. No fracture seen. No change compared to old exam.
[2021-01-29 21:26] LABS: Basophils % (A) 0 %; Eosinophils # (A) 0.2 k/uL (0-0.7); Eosinophils % (A) 3 %; HCT 44.1 % (39.0-53.0); HGB 14.7 gm/dL (13.0-17.5); Lymphocytes # (A) 1.3 k/uL (1.0-4.8); Lymphocytes % (A) 15 %; MCH 33.2 pg (25.0-35.0); MCHC 33.4 g/dL (31.0-37.0); MCV 99.5 fL (80.0-100.0); Mean Platelet Volume 6.9; Monocytes # (A) 0.4 k/uL (0-1.0); Monocytes % (A) 5 %; Neutrophils # (A) 6.6 k/uL (1.3-7.7); Neutrophils % (A) 77 %; Platelet Count 307 k/uL (150-450); RBC 4.43 m/uL (4.30-5.90); RDW 12.8 % (11.5-15.5); WBC 8.6 k/uL (3.8-10.6)
--- NOTE | 2021-01-29 21:27 | XR ---
EXAMINATION TYPE: XR chest 2V DATE OF EXAM: 01/29/2021 COMPARISON: 06/14/2018 HISTORY: Syncope TECHNIQUE: FINDINGS: Heart and mediastinum are normal. Lungs are clear. Diaphragm is normal. There are chest harriet ds. Bony thorax is intact. There is cervical spine fusion surgery. IMPRESSION: No active cardiopulmonary disease. Normal heart. No change.
[2021-01-29 21:36] LABS: Glucose 102 mg/dL (74-99); Sodium 139 mmol/L (137-145)
[2021-01-29 21:37] LABS: ALT 14 U/L (4-49); AST 31 U/L (17-59); African American GFR (CKD) >90 (>60 ml/min/1.73 sqM); Albumin 4.3 g/dL (3.5-5.0); Alkaline Phosphatase 53 U/L (38-126); Anion Gap 10 mmol/L; Blood Urea Nitrogen 12 mg/dL (9-20); Calcium 9.6 mg/dL (8.4-10.2); Carbon Dioxide 25 mmol/L (22-30); Chloride 104 mmol/L (98-107); Non-African American GFR(CKD) >90 (>60 ml/min/1.73 sqM); Total Bilirubin 0.9 mg/dL (0.2-1.3); Total Protein 6.7 g/dL (6.3-8.2)
[2021-01-29 21:43] LABS: Amorphous Sediment,Urine Rare /hpf; Appearance,Urine Cloudy (Clear); Bacteria,Urine Few /hpf; Bilirubin,Urine 1+ (Negative); Blood,Urine Negative (Negative); Calcium Oxalate Crystals,Urine Moderate /hpf; Color,Urine Yellow; Glucose,Urine (UA) Negative (Negative); Hyaline Casts,Urine 117 /lpf (0-2); Ketones,Urine Trace (Negative); Leukocyte Esterase,Urine Negative (Negative); Mucus,Urine Many /hpf; Nitrite,Urine Negative (Negative); Protein,Urine 1+ (Negative); RBC,Urine 4 /hpf (0-5); Specific Gravity,Urine 1.034 (1.001-1.035); Sperm,Urine Occasional /hpf; Squamous Epithelial Cell,Urine 1 /hpf (0-4); WBC,Urine 7 /hpf (0-5)
[2021-01-29 21:44] LABS: INR 0.9 (<1.2); Prothrombin Time 10.1 sec (9.0-12.0)
[2021-01-29 22:00] LABS: Potassium 4.1 mmol/L (3.5-5.1)
[2021-01-29 22:28] LABS: Partial Thromboplastin Time 19.3 sec (22.0-30.0)
--- NOTE | 2021-01-29 22:51 | ED ---
General Adult HPI - General Chief complaint: Syncope Stated complaint: Passed out Time Seen by Provider: 01/29/21 20:43 Source: patient Mode of arrival: wheelchair Limitations: no limitations - History of Present Illness Initial comments: Kike is a 60-year-old male who presents the emergency department today via private vehicle for evaluation of syncope home. Patient reports that he had a very busy day working outside, he admits that he had some coffee this morning but didn't eat all day and to have much to drink. He had one beer at his neighbor's house this evening and upon getting ready to walk home patient became very lightheaded and had a syncopal episode. His spouse than the assisted him in walking home and sitting down on a bench but he again had another passing out episode at which time she decided to bring her to the hospital for further evaluation. Patient denies any chest pain palpitations or shortness of breath prior to or after this event. He does report a mild headache but states that he suffers from chronic headaches and this is not atypical for him. - Related Data Home Medications Medication Instructions Recorded Confirmed Cyclobenzaprine [Flexeril] 10 mg PO TID PRN 12/21/16 06/14/18 Multivitamins, Thera [Multivitamin 1 tab PO DAILY 12/21/16 06/14/18 (formulary)] Omeprazole [PriLOSEC] 20 mg PO AC-BRKFST 12/21/16 06/14/18 Tamsulosin HCl [Flomax] 0.4 mg PO BID 12/21/16 06/14/18 Pregabalin [Lyrica] 150 mg PO TID PRN 06/14/18 06/14/18 Previous Rx's Medication Instructions Recorded Ibuprofen [Motrin] 800 mg PO Q8HR PRN #90 tab 01/17/17 Acetaminophen Tab [Tylenol] 650 mg PO Q6HR PRN tab 06/16/18 Ibuprofen [Motrin] 400 mg PO Q6HR PRN tab 06/16/18 Allergies Allergy/AdvReac Type Severity Reaction Status Date / Time No Known Allergies Allergy Verified 01/29/21 20:13 Review of Systems ROS Statement: Those systems with pertinent positive or pertinent negative responses have been documented in the HPI. ROS Other: All systems not noted in ROS Statement are negative. 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 , FREQUENT NIGHT TIME URINATION WITH URGENCY. hx ulcers, diarrhea/loose stool, bulging disk in lower back and neck, lt lazy eye History of Any Multi-Drug Resistant Organisms: None Reported Past Surgical History: Back Surgery, Cholecystectomy, Hernia Repair, Orthopedic Surgery Additional Past Surgical History / Comment(s): EYE SURGERY (CHILD), LEFT ROTATOR CUFF , NECK SURGERY(fusion) WITH PLATE 6 & SCREWS, LEFT INGUINAL HERNIA. EGD, Colonoscopy, umb hernia repair Past Anesthesia/Blood Transfusion Reactions: No Reported Reaction Past Psychological History: No Psychological Hx Reported Smoking Status: Current every day smoker Past Alcohol Use History: Occasional Past Drug Use History: Marijuana - Past Family History Father Family Medical History: Myocardial Infarction ([place]) Additional Family Medical History / Comment(s): "heart problems" Mother Family Medical History: No Reported History General Exam - General Exam Comments Initial Comments: Physical Exam GENERAL: Patient is well-developed and well-nourished. Patient is nontoxic and well- hydrated and is in no distress. HENT: Normocephalic, Atraumatic. EYES: PERRL, EOMI PULMONARY: Unlabored respirations. No audible rales rhonchi or wheezing was noted. CARDIOVASCULAR: There is a regular rate and rhythm without any murmurs gallops or rubs. ABDOMEN: Soft and nontender with normal bowel sounds. SKIN: Skin is clear with no lesions or rashes and otherwise unremarkable. : Deferred NEUROLOGIC: Patient is alert and oriented x3. Moving all extremities spontaneously MUSCULOSKELETAL: Normal extremities with adequate strength and full range of motion. No lower extremity swelling or edema. No calf tenderness. PSYCHIATRIC: Normal psychiatric evaluation. Limitations: no limitations Course Vital Signs 01/29/21 01/29/21 20:08 21:15 Temperature 97.8 F Pulse Rate 79 70 Respiratory 18 18 Rate Blood Pressure 98/66 104/68 O2 Sat by Pulse 98 98 Oximetry EKG Findings - EKG Comments: EKG Findings:: EKG was obtained due to complaint of syncope, EKG was obtained at 2023 rate is 66 rhythm is sinus normal axis, normal intervals, OR 166 QRS 86 QTC [address] elevations or depressions no evidence of ischemia infarction or arrhythmia. Medical Decision Making - Medical Decision Making Patient was seen and evaluated history was obtained from patient and at bedside 60-year-old gentleman who has not been eating or drinking all day had a syncopal episode witnessed by the , no head trauma no chest pain palpitations shortness of breath EKG was nonischemic no arrhythmias Labs are relatively unremarkable urinalysis shows significant hyaline casts and evidence of dehydration Patient was reevaluated after IV fluids reports he's feeling much better at this time I did offer the patient admission to the hospital for further hydration and evaluation by cardiology. However patient prefer discharge home and close outpatient follow-up with his primary care provider. Patient does not want possible exposure to COVID patient's and does not feel his symptoms warrant him to stay. Patient's will be home with him he will not be working tomorrow he states he will make efforts to stay hydrated and will follow with his primary care. Return parameters were discussed patient is discharged home in stable condition - Lab Data Result diagrams: 01/29/21 21:00 01/29/21 21:00 Lab Results 01/29/21 01/29/21 01/29/21 Range/Units 21:00 21:00 21:00 WBC 8.6 (3.8-10.6) k/uL RBC 4.43 (4.30-5.90) m/uL Hgb 14.7 (13.0-17.5) gm/dL Hct 44.1 (39.0-53.0) % MCV 99.5 (80.0-100.0) fL MCH 33.2 (25.0-35.0) pg MCHC 33.4 (31.0-37.0) g/dL RDW 12.8 (11.5-15.5) % Plt Count 307 (150-450) k/uL MPV 6.9 Neutrophils % 77 % Lymphocytes % 15 % Monocytes % 5 % Eosinophils % 3 % Basophils % 0 % Neutrophils # 6.6 (1.3-7.7) k/uL Lymphocytes # 1.3 (1.0-4.8) k/uL Monocytes # 0.4 (0-1.0) k/uL Eosinophils # 0.2 (0-0.7) k/uL Basophils # 0.0 (0-0.2) k/uL PT 10.1 (9.0-12.0) sec INR 0.9 (<1.2) APTT 19.3 L (22.0-30.0) sec Sodium (137-145) mmol/L Potassium (3.5-5.1) mmol/L Chloride (98-107) mmol/L Carbon Dioxide (22-30) mmol/L Anion Gap mmol/L BUN (9-20) mg/dL Creatinine (0.66-1.25) mg/dL Est GFR (CKD-EPI)AfAm (>60 ml/min/1.73 sqM) Est GFR (CKD-EPI)NonAf (>60 ml/min/1.73 sqM) Glucose (74-99) mg/dL Calcium (8.4-10.2) mg/dL Total Bilirubin (0.2-1.3) mg/dL AST (17-59) U/L ALT (4-49) U/L Alkaline Phosphatase (38-126) U/L Troponin I (0.000-0.034) ng/mL Total Protein (6.3-8.2) g/dL Albumin (3.5-5.0) g/dL Urine Color Yellow Urine Appearance Cloudy (Clear) Urine pH 6.0 (5.0-8.0) Ur Specific [place] 1.034 (1.001-1.035) Urine Protein 1+ H (Negative) Urine Glucose (UA) Negative (Negative) Urine Ketones Trace H (Negative) Urine Blood Negative (Negative) Urine Nitrite Negative (Negative) Urine Bilirubin 1+ H (Negative) Urine Urobilinogen 4.0 (<2.0) mg/dL Ur Leukocyte Esterase Negative (Negative) Urine RBC 4 (0-5) /hpf Urine WBC 7 H (0-5) /hpf Ur Squamous Epith Cells 1 (0-4) /hpf Calcium Oxalate Crystal Moderate H (None) /hpf Amorphous Sediment Rare H (None) /hpf Urine Bacteria Few H (None) /hpf Hyaline Casts 117 H (0-2) /lpf Urine Mucus Many H (None) /hpf Urine Sperm Occasional H (None) /hpf 01/29/21 01/29/21 Range/Units 21:00 21:00 WBC (3.8-10.6) k/uL RBC (4.30-5.90) m/uL Hgb (13.0-17.5) gm/dL Hct (39.0-53.0) % MCV (80.0-100.0) fL MCH (25.0-35.0) pg MCHC (31.0-37.0) g/dL RDW (11.5-15.5) % Plt Count (150-450) k/uL MPV Neutrophils % % Lymphocytes % % Monocytes % % Eosinophils % % Basophils % % Neutrophils # (1.3-7.7) k/uL Lymphocytes # (1.0-4.8) k/uL Monocytes # (0-1.0) k/uL Eosinophils # (0-0.7) k/uL Basophils # (0-0.2) k/uL PT (9.0-12.0) sec INR (<1.2) APTT (22.0-30.0) sec Sodium 139 (137-145) mmol/L Potassium 4.1 (3.5-5.1) mmol/L Chloride 104 (98-107) mmol/L Carbon Dioxide 25 (22-30) mmol/L Anion Gap 10 mmol/L BUN 12 (9-20) mg/dL Creatinine 0.82 (0.66-1.25) mg/dL Est GFR (CKD-EPI)AfAm >90 (>60 ml/min/1.73 sqM) Est GFR (CKD-EPI)NonAf >90 (>60 ml/min/1.73 sqM) Glucose 102 H (74-99) mg/dL Calcium 9.6 (8.4-10.2) mg/dL Total Bilirubin 0.9 (0.2-1.3) mg/dL AST 31 (17-59) U/L ALT 14 (4-49) U/L Alkaline Phosphatase 53 (38-126) U/L Troponin I <0.012 (0.000-0.034) ng/mL Total Protein 6.7 (6.3-8.2) g/dL Albumin 4.3 (3.5-5.0) g/dL Urine Color Urine Appearance (Clear) Urine pH (5.0-8.0) Ur Specific [place] (1.001-1.035) Urine Protein (Negative) Urine Glucose (UA) (Negative) Urine Ketones (Negative) Urine Blood (Negative) Urine Nitrite (Negative) Urine Bilirubin (Negative) Urine Urobilinogen (<2.0) mg/dL Ur Leukocyte Esterase (Negative) Urine RBC (0-5) /hpf Urine WBC (0-5) /hpf Ur Squamous Epith Cells (0-4) /hpf Calcium Oxalate Crystal (None) /hpf Amorphous Sediment (None) /hpf Urine Bacteria (None) /hpf Hyaline Casts (0-2) /lpf Urine Mucus (None) /hpf Urine Sperm (None) /hpf Disposition Clinical Impression: Dehydration, Fainting spell Disposition: HOME SELF-CARE Condition: Stable Additional Instructions: Contact Dr Orlando Sunday for follow up Sure drinking plenty of fluids and stay hydrated, return to the ER for any recurrence or worsening of her condition. Is patient prescribed a controlled substance at d/c from ED?: No Referrals: Pete Orlando Jr, DO [Primary Care Provider] - 1-2 days
[2021-01-29 23:07] VITALS: BP 127/79; PULSE 71; TEMP 98.2
== END 2021-01-29 23:00 | disposition home or self-care (01) ==
LOC: EC 20:06
DX: E86.0 Dehydration (principal); R55 Syncope and collapse; K21.9 Gastro-esophageal reflux disease without esophagitis; M19.90 Unspecified osteoarthritis, unspecified site; F17.200 Nicotine dependence, unspecified, uncomplicated; F12.90 Cannabis use, unspecified, uncomplicated; Z90.49 Acquired absence of other specified parts of digestive tract
CPT/HCPCS: 36415; 70450; 71046; 72125; 80053; 81001; 84484; 85025; 85610; 85730; 93005; 96360; 96361; 96376; 99284

== ENCOUNTER → 2021-02-28 | Outpatient (CLI) | payer OTHER ==
--- NOTE | 2021-02-28 18:36 | XR ---
EXAMINATION TYPE: XR lumbar spine 2 or 3V DATE OF EXAM: 02/28/2021 COMPARISON: NONE HISTORY: Low back pain TECHNIQUE: 3 views FINDINGS: There is slight lumbar dextroscoliosis. There is degenerative spur formation anteriorly thr oughout the lumbar spine. There is mild lumbar disc space narrowing. There is no compression fracture . Sacroiliac joints are intact. IMPRESSION: Spondylotic changes. No fracture seen.
== END | disposition home or self-care (01) ==
LOC: RADXRMAIN 17:54
PROVIDERS: ATTEND Family Medicine
DX: M47.816 Spondylosis without myelopathy or radiculopathy, lumbar region (principal)
CPT/HCPCS: 72100

== ENCOUNTER 2021-05-11 17:14 | Emergency (ER) | payer OTHER ==
[2021-05-11 18:27] VITALS: BP 125/82; PULSE 75; RESP 20; TEMP 98
[2021-05-11] MEDS ORDERED: HYDROcodone/APAP 5-325MG 1 EACH TAB PO STA (18:42)
--- NOTE | 2021-05-11 19:12 | XR ---
EXAMINATION TYPE: XR foot complete LT DATE OF EXAM: 05/11/2021 COMPARISON: NONE HISTORY: Laceration base of the metatarsals TECHNIQUE: 3 views FINDINGS: I see no fracture nor dislocation. Metatarsals are intact. There is no sign of a foreign daphney dy. Joint spaces are fairly normal. IMPRESSION: Negative left foot exam.
[2021-05-11] MEDS ORDERED: ACET/COD 300 MG/30 MG STARTER PACK 6 TAB BTL PO STA (19:43)
--- NOTE | 2021-07-10 15:12 | ED ---
General Adult HPI - General Chief complaint: Extremity Injury, Lower Stated complaint: lt foot injury Time Seen by Provider: 05/11/21 18:31 Source: patient, RN notes reviewed Mode of arrival: ambulatory Limitations: no limitations - History of Present Illness Initial comments: 60-year-old male presents to the emergency department for a chief complaint of left foot pain. Patient reports he dropped a 4 x 4 onto the left foot. States it is painful to walk on. Patient denies any other injuries.Patient has no other complaints at this time including shortness of breath, chest pain, abdominal pain, nausea or vomiting, headache, or visual changes. - Related Data Home Medications Medication Instructions Recorded Confirmed Cyclobenzaprine [Flexeril] 10 mg PO TID PRN 12/21/16 06/14/18 Multivitamins, Thera [Multivitamin 1 tab PO DAILY 12/21/16 06/14/18 (formulary)] Omeprazole [PriLOSEC] 20 mg PO AC-BRKFST 12/21/16 06/14/18 Tamsulosin HCl [Flomax] 0.4 mg PO BID 12/21/16 06/14/18 Pregabalin [Lyrica] 150 mg PO TID PRN 06/14/18 06/14/18 Previous Rx's Medication Instructions Recorded Ibuprofen [Motrin] 800 mg PO Q8HR PRN #90 tab 01/17/17 Acetaminophen Tab [Tylenol] 650 mg PO Q6HR PRN tab 06/16/18 Ibuprofen [Motrin] 400 mg PO Q6HR PRN tab 06/16/18 Allergies Allergy/AdvReac Type Severity Reaction Status Date / Time No Known Allergies Allergy Verified 05/11/21 18:27 Review of Systems ROS Statement: Those systems with pertinent positive or pertinent negative responses have been documented in the HPI. ROS Other: All systems not noted in ROS Statement are negative. 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 , FREQUENT NIGHT TIME URINATION WITH URGENCY. hx ulcers, diarrhea/loose stool, bulging disk in lower back and neck, lt lazy eye History of Any Multi-Drug Resistant Organisms: None Reported Past Surgical History: Back Surgery, Cholecystectomy, Hernia Repair, Orthopedic Surgery Additional Past Surgical History / Comment(s): EYE SURGERY (CHILD), LEFT ROTATOR CUFF , NECK SURGERY(fusion) WITH PLATE 6 & SCREWS, LEFT INGUINAL HERNIA. EGD, Colonoscopy, umb hernia repair Past Anesthesia/Blood Transfusion Reactions: No Reported Reaction Past Psychological History: No Psychological Hx Reported Smoking Status: Current every day smoker Past Alcohol Use History: Occasional Past Drug Use History: Marijuana - Past Family History Father Family Medical History: Myocardial Infarction ([place]) Additional Family Medical History / Comment(s): "heart problems" Mother Family Medical History: No Reported History General Exam Limitations: no limitations General appearance: alert, in no apparent distress Head exam: Present: atraumatic Eye exam: Present: normal appearance, PERRL, EOMI. Absent: scleral icterus, conjunctival injection ENT exam: Present: normal exam, mucous membranes moist Neck exam: Present: normal inspection, full ROM. Absent: tenderness Respiratory exam: Present: normal lung sounds bilaterally. Absent: respiratory distress, wheezes Cardiovascular Exam: Present: regular rate, normal rhythm, normal heart sounds Extremities exam: Present: normal capillary refill (Capillary refill less than 2 seconds, DP pulse 2+ left lower extremity), other (Minimal dorsal left foot tenderness. No tenderness of the ankle. Full range of motion of the foot and ankle. Sensation intact left lower extremity. minimal abrasion noted) Course Vital Signs 05/11/ 18:23 Temperature 98.0 F Pulse Rate 75 Respiratory 20 Rate Blood Pressure 125/82 O2 Sat by Pulse 98 Oximetry Medical Decision Making - Medical Decision Making HPI and physical exam as documented. X-ray shows no acute fracture. Patient was discharged home after pain had improved. Disposition Clinical Impression: Foot pain, left Disposition: HOME SELF-CARE Condition: Good Instructions (If sedation given, give patient instructions): Foot Contusion (ED) Is patient prescribed a controlled substance at d/c from ED?: No Referrals: Pete Orlando Jr, DO [Primary Care Provider] - 1-2 days Time of Disposition: 15:12
== END 2021-05-11 19:59 | disposition home or self-care (01) ==
LOC: EC 17:14
DX: S90.812A Abrasion, left foot, initial encounter (principal); K21.9 Gastro-esophageal reflux disease without esophagitis; F17.200 Nicotine dependence, unspecified, uncomplicated; Z79.899 Other long term (current) drug therapy; W20.8XXA Other cause of strike by thrown, projected or falling object, initial encounter; Y92.89 Other specified places as the place of occurrence of the external cause
CPT/HCPCS: 99283

== ENCOUNTER 2021-07-20 12:20 | Emergency (ER) | payer OTHER ==
[2021-07-20 12:36] VITALS: TEMP 97.5
[2021-07-20 12:58] LABS: Glucose,Whole Blood 94 mg/dL (75-99)
--- NOTE | 2021-07-20 13:08 | ED ---
General Adult HPI - General Chief complaint: Neuro Symptoms/Deficit Stated complaint: sudden onset headache, vision problem Time Seen by Provider: 07/20/21 12:51 Source: patient Mode of arrival: wheelchair Limitations: no limitations - History of Present Illness Initial comments: Dictation was produced using [employer] dictation software. please excuse any grammatical, word or spelling errors. Chief Complaint: 60-year-old male with past medical history of intraocular weakness of the left thigh persisted emergency department for severe headache History of Present Illness: Patient is a 60-year-old male who presents to the emergency department for acute headache. Since states that his headache started at 12 PM today. States severe located to his bitemporal area. Patient has history of chronic headaches from neck surgery. She states that his headache is severe and very different from his usual headaches. Patient denies any numbness and weakness to his body. He states that he has no sensory deficits to his extremities. He has a coworker that brought him to the emergency department. She sees him everyday and doesn't notice any abnormalities to his facial symmetry. Patient notes visual changes. He states that his vision is blurry. Denies any black or white haziness. Denies any eye pain. He does report diplopia however he reports that is chronic. He reports feeling generalized weakness. The ROS documented in this emergency department record has been reviewed and confirmed by me. Those systems with pertinent positive or negative responses have been documented in the HPI. All other systems are other negative and/or noncontributory. PHYSICAL EXAM: General Impression: Alert and oriented x3, not in acute distress HEENT: Normocephalic atraumatic, pupils equal and reactive to light bilaterally, mucous membranes moist. Cardiovascular: Heart regular rate and rhythm Chest: Able to complete full sentences, no retractions, no tachypnea Abdomen: abdomen soft, non-tender, non-distended, no organomegaly Musculoskeletal: Pulses present and equal in all extremities, no peripheral edema Motor: no focal deficits noted Neurological: CN II-XII grossly intact, no focal motor or sensory deficits noted Skin: Intact with no visualized rashes Psych: Normal affect and mood ED course: 60-year-old male presents with acute onset severe headache starting 1 hour prior to arrival. Vital signs upon arrival shows findings within acceptable limits. Computed tomography scan of brain shows findings consistent with subarachnoid hemorrhage. Code stroke was paged CT angiogram of the head and neck was obtained. Spoke with Dr. Orozco who reviewed the films showing 2 intracranial aneurysms. Patient will be transported to [facility] to intensive care unit. patient ordered for nicardipine forestalled pressure less than 140. [facility] practitioner works with stroke neurologist w ho is willing to accept patients care. Labs are unremarkable. EKG interpretation: Ventricular rate 59, sinus bradycardia,. Interval 170, QRS 84, QTC 394. No SC prolongation, no QTC prolongation, no ST or T-wave changes noted. Overall, this EKG is unremarkable - Related Data Home Medications Medication Instructions Recorded Confirmed Cyclobenzaprine [Flexeril] 10 mg PO HS PRN 12/21/16 07/20/21 Multivitamins, Thera [Multivitamin 1 tab PO DAILY 12/21/16 07/20/21 (formulary)] Pregabalin [Lyrica] 150 mg PO BID PRN 06/14/18 07/20/21 Mometasone Furoate [Elocon 1 applic TOPICAL BID 07/20/21 07/20/21 Ointment] Viagra (Unknown Dose) 1 tab PO DAILY PRN 07/20/21 07/20/21 Previous Rx's Medication Instructions Recorded Acetaminophen Tab [Tylenol] 650 mg PO Q6HR PRN tab 06/16/18 Allergies Allergy/AdvReac Type Severity Reaction Status Date / Time No Known Allergies Allergy Verified 07/20/21 14:13 Review of Systems ROS Statement: Those systems with pertinent positive or pertinent negative responses have been documented in the HPI. ROS Other: All systems not noted in ROS Statement are negative. 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 , FREQUENT NIGHT TIME URINATION WITH URGENCY. hx ulcers, diarrhea/loose stool, bulging disk in lower back and neck, lt lazy eye History of Any Multi-Drug Resistant Organisms: None Reported Past Surgical History: Back Surgery, Cholecystectomy, Hernia Repair, Orthopedic Surgery Additional Past Surgical History / Comment(s): EYE SURGERY (CHILD), LEFT ROTATOR CUFF , NECK SURGERY(fusion) WITH PLATE 6 & SCREWS, LEFT INGUINAL HERNIA. EGD, Colonoscopy, umb hernia repair Past Anesthesia/Blood Transfusion Reactions: No Reported Reaction Past Psychological History: No Psychological Hx Reported Smoking Status: Current every day smoker Past Alcohol Use History: Occasional Past Drug Use History: Marijuana - Past Family History Father Family Medical History: Myocardial Infarction ([place]) Additional Family Medical History / Comment(s): "heart problems" Mother Family Medical History: No Reported History General Exam Limitations: no limitations Course Vital Signs 07/20/21 07/20/21 07/20/21 12:33 13:51 14:10 Temperature 97.5 F L Pulse Rate 68 74 74 Respiratory 20 18 18 Rate Blood Pressure 164/99 174/97 159/98 O2 Sat by Pulse 99 96 96 Oximetry Medical Decision Making - Lab Data Result diagrams: 07/20/21 13:26 07/20/21 13:26 Lab Results 07/20/21 07/20/21 07/20/21 Range/Units 12:56 13:26 13:26 WBC 7.9 (3.8-10.6) k/uL RBC 4.19 L (4.30-5.90) m/uL Hgb 14.7 (13.0-17.5) gm/dL Hct 42.7 (39.0-53.0) % MCV 102.0 H (80.0-100.0) fL MCH 35.0 (25.0-35.0) pg MCHC 34.3 (31.0-37.0) g/dL RDW 13.5 (11.5-15.5) % Plt Count 378 (150-450) k/uL MPV 6.7 Neutrophils % 73 % Lymphocytes % 18 % Monocytes % 6 % Eosinophils % 1 % Basophils % 0 % Neutrophils # 5.7 (1.3-7.7) k/uL Lymphocytes # 1.5 (1.0-4.8) k/uL Monocytes # 0.5 (0-1.0) k/uL Eosinophils # 0.0 (0-0.7) k/uL Basophils # 0.0 (0-0.2) k/uL Macrocytosis Slight PT 10.0 (9.0-12.0) sec INR 0.9 (<1.2) APTT 24.8 (22.0-30.0) sec Sodium (137-145) mmol/L Potassium (3.5-5.1) mmol/L Chloride (98-107) mmol/L Carbon Dioxide (22-30) mmol/L Anion Gap mmol/L BUN (9-20) mg/dL Creatinine (0.66-1.25) mg/dL Est GFR (CKD-EPI)AfAm (>60 ml/min/1.73 sqM) Est GFR (CKD-EPI)NonAf (>60 ml/min/1.73 sqM) Glucose (74-99) mg/dL POC Glucose (mg/dL) 94 (75-99) mg/dL POC Glu [employer] Safety Manager ID [place] Plasma Lactic Acid Ruben (0.7-2.0) mmol/L Calcium (8.4-10.2) mg/dL Magnesium (1.6-2.3) mg/dL Total Bilirubin (0.2-1.3) mg/dL AST (17-59) U/L ALT (4-49) U/L Alkaline Phosphatase (38-126) U/L Total Protein (6.3-8.2) g/dL Albumin (3.5-5.0) g/dL 07/20/21 07/20/21 Range/Units 13:26 13:26 WBC (3.8-10.6) k/uL RBC (4.30-5.90) m/uL Hgb (13.0-17.5) gm/dL Hct (39.0-53.0) % MCV (80.0-100.0) fL MCH (25.0-35.0) pg MCHC (31.0-37.0) g/dL RDW (11.5-15.5) % Plt Count (150-450) k/uL MPV Neutrophils % % Lymphocytes % % Monocytes % % Eosinophils % % Basophils % % Neutrophils # (1.3-7.7) k/uL Lymphocytes # (1.0-4.8) k/uL Monocytes # (0-1.0) k/uL Eosinophils # (0-0.7) k/uL Basophils # (0-0.2) k/uL Macrocytosis PT (9.0-12.0) sec INR (<1.2) APTT (22.0-30.0) sec Sodium 137 (137-145) mmol/L Potassium 4.9 (3.5-5.1) mmol/L Chloride 104 (98-107) mmol/L Carbon Dioxide 25 (22-30) mmol/L Anion Gap 8 mmol/L BUN 9 (9-20) mg/dL Creatinine 0.69 (0.66-1.25) mg/dL Est GFR (CKD-EPI)AfAm >90 (>60 ml/min/1.73 sqM) Est GFR (CKD-EPI)NonAf >90 (>60 ml/min/1.73 sqM) Glucose 97 (74-99) mg/dL POC Glucose (mg/dL) (75-99) mg/dL POC Glu Construction Safety Manager ID Plasma Lactic Acid Ruben 1.3 (0.7-2.0) mmol/L Calcium 9.6 (8.4-10.2) mg/dL Magnesium 2.0 (1.6-2.3) mg/dL Total Bilirubin 0.5 (0.2-1.3) mg/dL AST 25 (17-59) U/L ALT 15 (4-49) U/L Alkaline Phosphatase 62 (38-126) U/L Total Protein 6.5 (6.3-8.2) g/dL Albumin 4.3 (3.5-5.0) g/dL Critical Care Time Critical Care Time: Yes Total Critical Care Time: 33 Disposition Clinical Impression: Cerebrovascular accident (CVA), Subarachnoid bleed Disposition: OTHER INSTITUTION NOT DEFINED Condition: Critical Referrals: Pete Orlando Jr, DO [Primary Care Provider] - 1-2 days - Out of Hospital Transfer - Req. Specs Out of Hospital Transfer - Requested Specifics: Other Emergency Center ([facility])
[2021-07-20] MEDS ORDERED: niCARdipine 20 MG in SODIUM CHLORIDE 0.9% 192 ML IV SCH (13:30)
--- NOTE | 2021-07-20 13:31 | CT ---
EXAMINATION TYPE: CT brain wo con DATE OF EXAM: 07/20/2021 COMPARISON: 01/29/2021 INDICATION: Acute headache DLP: 1135.4 mGycm, Automated exposure control for dose reduction was used. CONTRAST: None CT of the brain is performed utilizing 3 mm thick sections through the posterior fossa and 3 mm thick sections through the remaining calvarium. Study is performed within 24 hours of arrival to the hosp ital. There is mild increased density within the extra-axial space between the frontal and middle lobes and along the interhemispheric fissure between the frontal lobes compatible with small subarachnoid hemo rrhage. Report was immediately called to Dr. Murguia by Dr. Ocampo by telephone at the time of preli minary interpretation 1326 hours 07/20/2021. No mass lesion is evident. No acute infarcts are evident. Ventricles and sulci are appropriate for the patient age. No Hydrocephalus is evident. Paranasal si nuses and mastoid air cells within the [id number] are clear. IMPRESSIONS: 1. Subarachnoid hemorrhage right suprasellar cistern extending along the course of the right middle cerebral artery.
[2021-07-20 13:42] LABS: Basophils % (A) 0 %; Eosinophils % (A) 1 %; HCT 42.7 % (39.0-53.0); HGB 14.7 gm/dL (13.0-17.5); Lymphocytes # (A) 1.5 k/uL (1.0-4.8); Lymphocytes % (A) 18 %; MCHC 34.3 g/dL (31.0-37.0); Macrocytosis Slight; Mean Platelet Volume 6.7; Monocytes # (A) 0.5 k/uL (0-1.0); Monocytes % (A) 6 %; Neutrophils # (A) 5.7 k/uL (1.3-7.7); Neutrophils % (A) 73 %; Platelet Count 378 k/uL (150-450); RBC 4.19 m/uL (4.30-5.90); RDW 13.5 % (11.5-15.5); WBC 7.9 k/uL (3.8-10.6)
[2021-07-20] MEDS ORDERED: MORPHINE SULFATE 4 MG/ML SYRINGE IV STA (13:42)
[2021-07-20] MEDS ORDERED: ONDANSETRON 4 MG/2 ML VIAL IVP STA (13:55)
[2021-07-20 13:57] LABS: INR 0.9 (<1.2); Partial Thromboplastin Time 24.8 sec (22.0-30.0)
[2021-07-20 13:58] VITALS: RESP 18
[2021-07-20 14:04] LABS: ALT 15 U/L (4-49); AST 25 U/L (17-59); African American GFR (CKD) >90 (>60 ml/min/1.73 sqM); Albumin 4.3 g/dL (3.5-5.0); Alkaline Phosphatase 62 U/L (38-126); Anion Gap 8 mmol/L; Blood Urea Nitrogen 9 mg/dL (9-20); Calcium 9.6 mg/dL (8.4-10.2); Carbon Dioxide 25 mmol/L (22-30); Chloride 104 mmol/L (98-107); Glucose 97 mg/dL (74-99); Non-African American GFR(CKD) >90 (>60 ml/min/1.73 sqM); Potassium 4.9 mmol/L (3.5-5.1); Sodium 137 mmol/L (137-145); Total Bilirubin 0.5 mg/dL (0.2-1.3); Total Protein 6.5 g/dL (6.3-8.2)
[2021-07-20] MEDS ORDERED: HYDROmorphone 0.5 MG/0.5 ML SYRINGE IVP STA (14:22)
--- NOTE | 2021-07-20 14:29 | CT ---
EXAMINATION TYPE: CT angio head neck DATE OF EXAM: 07/20/2021 HISTORY: Neuro deficit COMPARISON: None CT DLP: 568.9 mGycm. Automated Exposure Control for Dose Reduction was Utilized. TECHNIQUE: CTA scan of the neck is performed with IV Contrast, patient injected with 65 mL of Isovue 370, axial images are obtained, coronal and sagittal reformatted images are reviewed. Three-D recons tructed images are created on an independent workstation and reviewed. Source images are reviewed. FINDINGS: Carotid/Vascular Structures: There is a 3 vessel arch. Vertebral arteries are codominant. There is so me plaquing at the right carotid bifurcation. No significant flow-limiting stenosis is evident. Left carotid bifurcation appears normal. Cervical of [place]: Right vertebral artery appears small and may terminate in the right PICA. Posteri or cerebral vasculature is otherwise unremarkable. Internal carotid arteries bifurcate normally into A1 and M1 segments. A2 segments are normal. There may be a 0.4 cm aneurysm extending inferior from the anterior communicating artery. This is pre sent on the 3-D reconstructive images appears to be well demonstrated on the MIP coronal image 406 im age 13. A alegria aneurysm extending superior to the right middle cerebral artery trifurcation appears to be pr esent. Series 407 image 11. However this is not confirmed on 3-D reconstructive images. 0.3 cm calcification may be on the distal left middle cerebral artery trifurcation. 407 image 21. Thi s may be apparent on the 3-D reconstructed images. Posterior communicating arteries are not identified. IMPRESSION: 1. 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 2. Possible bilateral trifurcation vessel aneurysms, however not confirmed on 3-D reconstructed image s. 3. No significant flow-limiting stenosis carotid bifurcations. NASCET criteria was used in interpretation of this exam?
[2021-07-20 14:49] LABS: Glucose,Whole Blood 107 mg/dL (75-99)
[2021-07-20 14:56] VITALS: BP 123/68; PULSE 61
== END 2021-07-20 14:59 | disposition other institution (70) ==
LOC: EC 12:20
DX: I60.9 Nontraumatic subarachnoid hemorrhage, unspecified (principal); K21.9 Gastro-esophageal reflux disease without esophagitis; M19.90 Unspecified osteoarthritis, unspecified site; F17.200 Nicotine dependence, unspecified, uncomplicated; F12.90 Cannabis use, unspecified, uncomplicated; Z79.899 Other long term (current) drug therapy; Z82.49 Family history of ischemic heart disease and other diseases of the circulatory system
CPT/HCPCS: 36415; 93005; 80053; 83605; 83735; 85025; 85610; 85730; 70496; 70450; 70498; 99285; 96374; 96375 ×3; J2270; J2405; J1170; Q9967

== ENCOUNTER → 2022-05-30 | Outpatient (CLI) | payer OTHER ==
--- NOTE | 2022-05-30 07:53 | CTL ---
EXAMINATION TYPE: CT Low Dose Lung DATE OF EXAM ORDERED: 05/30/2022 HISTORY: Lung cancer screening CT DLP: 81.[address] CTDI: 2.3 mGy Automated exposure control for dose reduction was used. SCREENING VISIT: Yes COMPARISON: Chest radiograph 01/29/2021 TECHNIQUE: Low dose computed tomography scan was performed through the chest at 1 mm thick sections a nd reconstructed images in multiple planes at 1 mm and [address] DIAGNOSTIC QUALITY: Satisfactory FINDINGS: LUNG NODULES: None. LUNGS: COPD: Severity: None Fibrosis: Severity: None Lymph nodes: None Other findings: Mild posterior dependent atelectasis. RIGHT PLEURAL SPACE: Effusion: None Calcification: None Thickening: None Pneumothorax: None LEFT PLEURAL SPACE: Effusion: None Calcification: None Thickening: None Pneumothorax: None HEART: Heart Size: Normal Coronary Calcification: Small Pericardial Effusion: None OTHER FINDINGS: Upper abdomen: None Bony thorax: Multilevel disc degeneration changes throughout the spine. Partially visualized fixation hardware in the lower lumbar spine. Supraclavicular region: None Other: Prominent nonenlarged right low paratracheal lymph node measuring 8 mm in short axis. IMPRESSION: No clinically significant pulmonary nodules. CT LUNG RAD AND CT CHEST RECOMMENDATION: Lung-Rad 1 Negative: Continue annual screening with LDCT in 12 months. S Modifier (other clinically significant findings): Moderate Coronary artery calcifications.
== END | disposition home or self-care (01) ==
LOC: RADCTMAIN 06:53
DX: Z12.2 Encounter for screening for malignant neoplasm of respiratory organs (principal); I25.10 Atherosclerotic heart disease of native coronary artery without angina pectoris; Z87.891 Personal history of nicotine dependence
CPT/HCPCS: 71271

== ENCOUNTER 2022-10-25 12:28 | Observation (INO) | payer OTHER ==
[2022-10-25] MEDS ORDERED: ASPIRIN 81 MG PO STA (12:40)
[2022-10-25] MEDS ORDERED: NITROGLYCERIN OINT 1 INCH/GM PACKET TOPICAL STA (12:40)
--- NOTE | 2022-10-25 12:46 | ED ---
General Adult HPI - General Stated complaint: chest pain Time Seen by Provider: 10/25/22 12:35 Source: patient, RN notes reviewed, old records reviewed - History of Present Illness Initial comments: This is a 62-year-old male who presents emergency Department complaining that he is been having intermittent chest pain for last 2 weeks per patient states he had chest pain this morning started about 9:00 he continues to go now. Patient states it also makes him short of breath. Patient denies any diaphoretic episodes. Patient denies any radiation of the pain. Patient denies any nausea. Patient states he is a smoker does have high blood pressure has a very strong family history for heart disease. Patient states she's also had some brain aneurysms repaired in the last year or 2. Patient denies any headache currently. Patient denies numbness weakness. Patient denies any lightheadedness or dizziness. Patient denies any palpitations. Patient denies any recent fever chills or cough per patient denies any abdominal pain patient denies nausea vomiting or diarrhea. Patient denies any recent injury or trauma. - Related Data Home Medications Medication Instructions Recorded Confirmed Cyclobenzaprine [Flexeril] 10 mg PO HS PRN 12/21/16 07/20/21 Multivitamins, Thera [Multivitamin 1 tab PO DAILY 12/21/16 07/20/21 (formulary)] Pregabalin [Lyrica] 150 mg PO BID PRN 06/14/18 07/20/21 Mometasone Furoate [Elocon 1 applic TOPICAL BID 07/20/21 07/20/21 Ointment] Viagra (Unknown Dose) 1 tab PO DAILY PRN 07/20/21 07/20/21 Previous Rx's Medication Instructions Recorded Acetaminophen Tab [Tylenol] 650 mg PO Q6HR PRN tab 06/16/18 Allergies Allergy/AdvReac Type Severity Reaction Status Date / Time No Known Allergies Allergy Verified 07/20/21 14:13 Review of Systems ROS Statement: Those systems with pertinent positive or pertinent negative responses have been documented in the HPI. ROS Other: All systems not noted in ROS Statement are negative. 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 , FREQUENT NIGHT TIME URINATION WITH URGENCY. hx ulcers, diarrhea/loose stool, bulging disk in lower back and neck, lt lazy eye History of Any Multi-Drug Resistant Organisms: None Reported Past Surgical History: Back Surgery, Cholecystectomy, Hernia Repair, Orthopedic Surgery Additional Past Surgical History / Comment(s): EYE SURGERY (CHILD), LEFT ROTATOR CUFF , NECK SURGERY(fusion) WITH PLATE 6 & SCREWS, LEFT INGUINAL HERNIA. EGD, Colonoscopy, umb hernia repair Past Anesthesia/Blood Transfusion Reactions: No Reported Reaction Past Psychological History: No Psychological Hx Reported Smoking Status: Current every day smoker Past Alcohol Use History: Occasional Past Drug Use History: Marijuana - Past Family History Father Family Medical History: Myocardial Infarction ([place]) Additional Family Medical History / Comment(s): "heart problems" Mother Family Medical History: No Reported History General Exam - General Exam Comments Initial Comments: GENERAL: Patient is well-developed and well-nourished. Patient is nontoxic and well-hydrated and is in mild distress. ENT: Neck is soft and supple. No significant lymphadenopathy is noted. Oropharynx is clear. Moist mucous membranes. Neck has full range of motion without eliciting any pain. EYES: The sclera were anicteric and conjunctiva were pink and moist. Extraocular movements were intact and pupils were equal round and reactive to light. Eyelids were unremarkable. PULMONARY: Unlabored respirations. Good breath sounds bilaterally. No audible rales rhonchi or wheezing was noted. CARDIOVASCULAR: There is a regular rate and rhythm without any murmurs gallops or rubs. ABDOMEN: Soft and nontender with normal bowel sounds. SKIN: Skin is clear with no lesions or rashes and otherwise unremarkable. NEUROLOGIC: Patient is alert and oriented x3. Cranial nerves II through XII are grossly intact. Motor and sensory are also intact. Normal speech, volume and content. Symmetrical smile. MUSCULOSKELETAL: Normal extremities with adequate strength and full range of motion. No lower extremity swelling or edema. No calf tenderness. LYMPHATICS: No significant lymphadenopathy is noted PSYCHIATRIC: Normal psychiatric evaluation. Course Vital Signs 10/25/22 12:54 Temperature 98.2 F Pulse Rate 67 Respiratory 18 Rate Blood Pressure 167/95 O2 Sat by Pulse 98 Oximetry Medical Decision Making - Medical Decision Making EKG was interpreted by me. EKG shows sinus bradycardia 57 bpm GA interval 292 QRS is 90 QT intervals 4:15 QTC is 410. Patient's EKG shows no ST segment elevation or depression. I discussed smoking cessation for greater than 3 minutes. The risks of smoking were discussed with the patient including but not limited to risks of cancer, stroke, coronary artery disease and COPD. Also discussed with the patient were multiple methods of quitting smoking. Lastly we discussed the financial costs of smoking. I interpreted the chest x-ray showed question while ectasis versus infiltrate in the left lower lobe. Patient was given aspirin and Nitropaste in the emergency department with no significant relief. I spoke with Dr. myers he agreed to admit the patient and the patient wrote admitting orders. I consult to cardiology. - Lab Data Result diagrams: 10/25/22 12:50 10/25/22 12:50 Lab Results 10/25/22 10/25/22 10/25/22 Range/Units 12:50 12:50 12:50 WBC 8.8 (3.8-10.6) k/uL RBC 4.01 L (4.30-5.90) m/uL Hgb 13.4 (13.0-17.5) gm/dL Hct 40.9 (39.0-53.0) % MCV 102.0 H (80.0-100.0) fL MCH 33.4 (25.0-35.0) pg MCHC 32.8 (31.0-37.0) g/dL RDW 14.2 (11.5-15.5) % Plt Count 302 (150-450) k/uL MPV 8.6 Neutrophils % 74 % Lymphocytes % 19 % Monocytes % 4 % Eosinophils % 1 % Basophils % 1 % Neutrophils # 6.5 (1.3-7.7) k/uL Lymphocytes # 1.7 (1.0-4.8) k/uL Monocytes # 0.3 (0-1.0) k/uL Eosinophils # 0.1 (0-0.7) k/uL Basophils # 0.1 (0-0.2) k/uL Macrocytosis Slight PT 10.2 (9.0-12.0) sec INR 1.0 (<1.2) APTT 25.8 (22.0-30.0) sec Sodium 137 (137-145) mmol/L Potassium 4.2 (3.5-5.1) mmol/L Chloride 107 (98-107) mmol/L Carbon Dioxide 25 (22-30) mmol/L Anion Gap 5 mmol/L BUN 9 (9-20) mg/dL Creatinine 0.62 L (0.66-1.25) mg/dL Est GFR (CKD-EPI)AfAm >90 (>60 ml/min/1.73 sqM) Est GFR (CKD-EPI)NonAf >90 (>60 ml/min/1.73 sqM) Glucose 98 (74-99) mg/dL Calcium 8.9 (8.4-10.2) mg/dL Magnesium 1.9 (1.6-2.3) mg/dL Total Bilirubin 1.0 (0.2-1.3) mg/dL AST 26 (17-59) U/L ALT 21 (4-49) U/L Alkaline Phosphatase 62 (38-126) U/L Troponin I (0.000-0.034) ng/mL Total Protein 6.3 (6.3-8.2) g/dL Albumin 4.2 (3.5-5.0) g/dL 10/25/22 Range/Units 12:50 WBC (3.8-10.6) k/uL RBC (4.30-5.90) m/uL Hgb (13.0-17.5) gm/dL Hct (39.0-53.0) % MCV (80.0-100.0) fL MCH (25.0-35.0) pg MCHC (31.0-37.0) g/dL RDW (11.5-15.5) % Plt Count (150-450) k/uL MPV Neutrophils % % Lymphocytes % % Monocytes % % Eosinophils % % Basophils % % Neutrophils # (1.3-7.7) k/uL Lymphocytes # (1.0-4.8) k/uL Monocytes # (0-1.0) k/uL Eosinophils # (0-0.7) k/uL Basophils # (0-0.2) k/uL Macrocytosis PT (9.0-12.0) sec INR (<1.2) APTT (22.0-30.0) sec Sodium (137-145) mmol/L Potassium (3.5-5.1) mmol/L Chloride (98-107) mmol/L Carbon Dioxide (22-30) mmol/L Anion Gap mmol/L BUN (9-20) mg/dL Creatinine (0.66-1.25) mg/dL Est GFR (CKD-EPI)AfAm (>60 ml/min/1.73 sqM) Est GFR (CKD-EPI)NonAf (>60 ml/min/1.73 sqM) Glucose (74-99) mg/dL Calcium (8.4-10.2) mg/dL Magnesium (1.6-2.3) mg/dL Total Bilirubin (0.2-1.3) mg/dL AST (17-59) U/L ALT (4-49) U/L Alkaline Phosphatase (38-126) U/L Troponin I <0.012 (0.000-0.034) ng/mL Total Protein (6.3-8.2) g/dL Albumin (3.5-5.0) g/dL Disposition Clinical Impression: Chest pain Disposition: ADMITTED IP TO THIS [facility] Referrals: Pete Orlando Jr, [Primary Care Provider] - 1-2 days Time of Disposition: 14:21
[2022-10-25 12:57] LABS: Basophils # (A) 0.1 k/uL (0-0.2); Basophils % (A) 1 %; Eosinophils # (A) 0.1 k/uL (0-0.7); Eosinophils % (A) 1 %; HCT 40.9 % (39.0-53.0); HGB 13.4 gm/dL (13.0-17.5); Lymphocytes # (A) 1.7 k/uL (1.0-4.8); Lymphocytes % (A) 19 %; MCH 33.4 pg (25.0-35.0); MCHC 32.8 g/dL (31.0-37.0); Macrocytosis Slight; Mean Platelet Volume 8.6; Monocytes # (A) 0.3 k/uL (0-1.0); Monocytes % (A) 4 %; Neutrophils # (A) 6.5 k/uL (1.3-7.7); Neutrophils % (A) 74 %; Platelet Count 302 k/uL (150-450); RBC 4.01 m/uL (4.30-5.90); RDW 14.2 % (11.5-15.5); WBC 8.8 k/uL (3.8-10.6)
[2022-10-25 13:08] LABS: ALT 21 U/L (4-49); AST 26 U/L (17-59); African American GFR (CKD) >90 (>60 ml/min/1.73 sqM); Albumin 4.2 g/dL (3.5-5.0); Alkaline Phosphatase 62 U/L (38-126); Anion Gap 5 mmol/L; Blood Urea Nitrogen 9 mg/dL (9-20); Calcium 8.9 mg/dL (8.4-10.2); Carbon Dioxide 25 mmol/L (22-30); Chloride 107 mmol/L (98-107); Glucose 98 mg/dL (74-99); Magnesium 1.9 mg/dL (1.6-2.3); Non-African American GFR(CKD) >90 (>60 ml/min/1.73 sqM); Potassium 4.2 mmol/L (3.5-5.1); Sodium 137 mmol/L (137-145); Total Protein 6.3 g/dL (6.3-8.2)
[2022-10-25 13:15] LABS: Partial Thromboplastin Time 25.8 sec (22.0-30.0); Prothrombin Time 10.2 sec (9.0-12.0)
--- NOTE | 2022-10-25 13:55 | XR ---
EXAMINATION TYPE: XR chest 2V DATE OF EXAM: 10/25/2022 COMPARISON: CXR 01/29/2021. HISTORY: Chest pain. TECHNIQUE: Frontal and lateral views of the chest are obtained. FINDINGS: There is focal airspace opacity in the left lower lung on current study less well seen on lateral view. Right lung is clear. No pleural effusion or pneumothorax seen bilaterally. The cardiac silhouette size is stable and within normal limits. Anterior fusion plate near the cervical thoracic junction redemonstrated. IMPRESSION: New left lower lung acute infiltrate and/or atelectasis.
[2022-10-25] MEDS ORDERED: NITROGLYCERIN SL TABS 0.4 MG TAB SUBLINGUAL PRN (14:22)
[2022-10-25] MEDS ORDERED: ACETAMINOPHEN TAB 500 MG TAB PO STA (17:01)
[2022-10-25] MEDS: NITROGLYCERIN OINT 1 INCH/GM PACKET TOPICAL SCH (18:15)
[2022-10-25] MEDS ORDERED: ACETAMINOPHEN TAB 325 MG TAB PO PRN (21:49)
[2022-10-26] MEDS: NITROGLYCERIN OINT 1 INCH/GM PACKET TOPICAL SCH ×3 (00:10→17:02)
[2022-10-26 08:01] VITALS: BP 131/76; PULSE 58; RESP 16; TEMP 97.6
[2022-10-26] MEDS ORDERED: ASPIRIN 325 MG TAB PO SCH (09:00)
[2022-10-26] MEDS ORDERED: PANTOPRAZOLE 40 MG/10 ML VIAL IVP SCH (09:15)
[2022-10-26 09:30] LABS: Chol/HDL Ratio 2.63 Ratio; LDL Cholesterol,Calculated 64.9 mg/dL (0.0-131.0); VLDL Calculation 16.86 mg/dL (5.00-40.00)
--- NOTE | 2022-10-26 09:44 | P.CRDCN ---
History of Present Illness Consult date: 10/26/22 Consult reason: chest pain History of present illness: History of present illness: This is a 62-year-old man with no prior history of cardiac disease but does have a past medical history for brain aneurysm. He states he was at the doctor's office to have his medications reordered and he voiced at that time that he was having episodes of chest pain with a little shortness of breath. He denies having any nausea or vomiting, no lightheadedness or dizziness. He states it sometimes happens when he is having physical activity. 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 He states his on the left side and goes through to his back on the left side. The back pain is worse than the chest pain. He has significant tenderness to the area. Activity does not make the pain worse or cause the pain. Family history of father having multiple MIs with the first being in his 50s. Patient is a smoker. EKG sinus bradycardia with no acute ST T wave changes 2 Echocardiogram performed in 2018 revealed EF of 55-60% Chest x-ray reveals Lower lobe acute infiltrate and/or atelectasis CBC and CMP unremarkable. Troponin negative 2. LDL 64, HDL 50, cholesterol 132, triglycerides 84 Review Of Systems: At the time of my evaluation Constitutional: No fever, no chills. No weakness, fatigue or lethargy. EENT: No headache. No dizziness. Lungs: No shortness of breath, cough, no sputum production. No wheezing. Cardiovascular: Reports chest pain and thoracic left-sided back pain, no lower extremity edema. No palpitations. No paroxysmal nocturnal dyspnea. No orthopnea. No lightheadedness or dizziness. No syncopal episodes. Abdominal: No abdominal pain. No nausea, vomiting. No diarrhea. No constipation. No bloody or tarry stools.. No loss of appetite. Genitourinary: No dysuria.. No urinary retention. Musculoskeletal: No myalgias. No muscle weakness, no gait dysfunction, no frequent falls. No back pain. No neck pain. Integumentary: No wounds, no lesions. No rash or pruritus. No unusual bruising. Neurologic: No aphasia. No facial droop. No change in mentation. No head injury. No headache. No paralysis. No paresthesia. Psychiatric: No depression. No anxiety. Endocrine: No abnormal blood sugars. Physical examination: Gen: This is a 62-year-old male resting in bed, appears to be in no acute distress VS: Reviewed HEENT: Head is atraumatic, normocephalic. Pupils equal, round. Sclerae is anicteric. NECK: Supple. No JVD. No lymphadenopathy. No thyromegaly. No carotid bruit. LUNGS: Clear to auscultation. No wheezes or rhonchi. No intercostal retract ions. HEART: Regular rate and rhythm. No murmur. Chest wall tenderness, left upper back tenderness ABDOMEN: Soft. Bowel sounds are present. No masses. No tenderness. EXTREMITIES: No pedal edema. No calf tenderness. NEUROLOGICAL: Patient is awake, alert and oriented x3. Cranial nerves 2 through 12 are grossly intact. Assessment: Chest wall pain seems to be muscular skeletal History of brain aneurysm Plan: Stress echocardiogram has been ordered If the stress test is within normal limits, patient is cleared for discharge home with planned follow-up in the office in 2 weeks. Thank you kindly for this consultation. Nurse practitioner note has been reviewed, I agree with documented findings and plan of care. Patient was seen and examined. 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 , FREQUENT NIGHT TIME URINATION WITH URGENCY. hx ulcers, diarrhea/loose stool, bulging disk in lower back and neck, lt lazy eye History of Any Multi-Drug Resistant Organisms: None Reported Past Surgical History: Back Surgery, Cholecystectomy, Hernia Repair, Orthopedic Surgery Additional Past Surgical History / Comment(s): EYE SURGERY (CHILD), LEFT ROTATOR CUFF , NECK SURGERY(fusion) WITH PLATE 6 & SCREWS, LEFT INGUINAL HERNIA. EGD, Colonoscopy, umb hernia repair, brain surgery for aneurysm x5 with 2 stents and 10 coils. Past Anesthesia/Blood Transfusion Reactions: No Reported Reaction Past Psychological History: No Psychological Hx Reported Smoking Status: Current every day smoker Past Alcohol Use History: Occasional Additional Past Alcohol Use History / Comment(s): started smoking as a teen, smokes 1/2 ppd Past Drug Use History: Marijuana Additional Drug Use History / Comment(s): occ use of medical marijuana - Past Family History Father Family Medical History: Myocardial Infarction ([place]) Additional Family Medical History / Comment(s): "heart problems" Mother Family Medical History: No Reported History Medications and Allergies Home Medications Medication Instructions Recorded Confirmed Type Viagra (Unknown Dose) 1 tab PO DAILY PRN 07/20/21 10/25/22 History Aspirin EC [Ecotrin Low Dose] 81 mg PO DAILY 10/25/22 10/25/22 History Atorvastatin [Lipitor] 40 mg PO DAILY 10/25/22 10/25/22 History Clopidogrel [Plavix] 75 mg PO DAILY 10/25/22 10/25/22 History Magnesium Oxide [Mag-Ox] 400 mg PO TID 10/25/22 10/25/22 History Pregabalin [Lyrica] 100 mg PO BID 10/25/22 10/25/22 History Triamcinolone 0.1% Cream [Kenalog 1 applic TOPICAL DAILY PRN 10/25/22 10/25/22 History 0.1% Cream] lisinopriL [Zestril] 10 mg PO DAILY 10/25/22 10/25/22 History Allergies Allergy/AdvReac Type Severity Reaction Status Date / Time No Known Allergies Allergy Verified 10/25/22 14:35 Physical Exam Vitals: Vital Signs Temp Pulse Pulse Resp BP BP Pulse Ox 10/26/22 03:10 97.9 F 57 L 17 121/78 99 10/25/22 19:18 97.8 F 61 18 110/69 97 10/25/22 12:54 98.2 F 67 18 167/95 98 Intake and Output 10/25/22 10/26/22 10/26/22 22:59 06:59 14:59 Other: # Voids 1 1 Weight 81.647 kg Results 10/25/22 12:50 10/25/22 12:50 Cardiac Enzymes 10/25/22 10/25/22 10/25/22 Range/Units 12:50 12:50 15:36 AST 26 (17-59) U/L Troponin I <0.012 <0.012 (0.000-0.034) ng/mL 10/25/22 Range/Units 17:57 AST (17-59) U/L Troponin I <0.012 (0.000-0.034) ng/mL Coagulation 10/25/22 Range/Units 12:50 PT 10.2 (9.0-12.0) sec APTT 25.8 (22.0-30.0) sec CBC 10/25/22 Range/Units 12:50 WBC 8.8 (3.8-10.6) k/uL RBC 4.01 L (4.30-5.90) m/uL Hgb 13.4 (13.0-17.5) gm/dL Hct 40.9 (39.0-53.0) % Plt Count 302 (150-450) k/uL Comprehensive Metabolic Panel 10/25/22 Range/Units 12:50 Sodium 137 (137-145) mmol/L Potassium 4.2 (3.5-5.1) mmol/L Chloride 107 (98-107) mmol/L Carbon Dioxide 25 (22-30) mmol/L BUN 9 (9-20) mg/dL Creatinine 0.62 L (0.66-1.25) mg/dL Glucose 98 (74-99) mg/dL Calcium 8.9 (8.4-10.2) mg/dL AST 26 (17-59) U/L ALT 21 (4-49) U/L Alkaline Phosphatase 62 (38-126) U/L Total Protein 6.3 (6.3-8.2) g/dL Albumin 4.2 (3.5-5.0) g/dL Current Medications Generic Name Dose Route Start Last Admin Trade Name Freq PRN Reason Stop Dose Admin Acetaminophen 650 mg 10/25/22 21:49 10/25/22 21:57 Acetaminophen Tab 325 Mg Tab PO 650 mg Q6HR PRN Administration Fever and/ or Pain Aspirin 325 mg 10/26/22 09:00 Aspirin 325 Mg Tab PO DAILY MAGDALENA Nitroglycerin 0.4 mg 10/25/22 14:22 Nitroglycerin Sl Tabs 0.4 Mg Tab SUBLINGUAL Q5M PRN Chest Pain Nitroglycerin 1 inch 10/25/22 18:00 10/26/22 06:12 Nitroglycerin Oint 1 Inch/Gm Packet TOPICAL Not Given Q6HR MAGDALENA Intake and Output 10/25/22 10/26/22 10/26/22 22:59 06:59 14:59 Other: # Voids 1 1 Weight 81.647 kg 10/25/22 12:50 10/25/22 12:50
--- NOTE | 2022-10-26 11:12 | CA ---
Stress Echo Report Kike Denny Age: 62 Gender: M : 1960 Exam Date: 10/26/2022 10:08 Exam Location: [place] [facility] Ht (in): 72 Wt (lb): 180 Ordering Physician: Lindsey Shahid Referring Physician: [id number] Betancourt Field Advisor: Lela Hudson RDCS Technologist Procedure CPT: Indication: CP ICD-9 Codes: Rhythm: Patient History: Cardiac Medications: Medications in past 24 hours: Contrast: Lumason Stress Results Protocol: Juanpablo Total dose(mL): 5 Exercise Duration (min:sec): 10:[address] Depression (mm): Angina Score: Perez Score: METS: 12.1 Resting HR: 75 Resting BP: 136 / 82 Peak HR: 142 Peak BP: 187 / 101 Max Predicted HR: 159 89 % Max Predicted HR Target HR: 135 Double Product: [id number] Stress Summary: BP Response: Reason for Termination: MAX EXERTION/TARGET HR Cardiac Symptoms: NO SYMPTOMS ECG Analysis Resting ECG: Stress ECG: Arrhythmia: Echo Analysis Resting Echo: Peak Echo Analysis: MEASUREMENTS (Male/Female) Normal Values CONCLUSIONS Good exercise capacity, 10 minutes 30 seconds on Juanpablo protocol Normal heart rate and blood pressure response No ECG evidence for ischemia no echocardiographic evidence for ischemia Dr. Toribio Lino MD (Electronically Signed) Final Date: 26 October 2022 11:11
[2022-10-26] MEDS ORDERED: RX INFO: IV CONTRAST WAS GIVEN 1 EACH MISC MISCELLANE PRN (12:09)
--- NOTE | 2022-10-26 13:04 | CT ---
EXAMINATION TYPE: CT chest w con DATE OF EXAM: 10/26/2022 COMPARISON: 10/25/2012 HISTORY: Chest pain. CT DLP: 322.1 mGycm Automated exposure control for dose reduction was used. CONTRAST: CT scan of the chest is performed with IV Contrast, patient injected with 70ml mL of Isovue 300. FINDINGS: LUNGS: The lungs are grossly clear, there is no concerning parenchymal mass or nodule identified. T here is no pleural effusion or pneumothorax seen. The tracheobronchial tree is patent. MEDIASTINUM: There are no greater than 1 cm hilar or mediastinal lymph nodes. No pericardial effusi on is seen. Ascending thoracic aortic aneurysm measuring 4.2 cm AP dimension. There is evidence of ca rdiomegaly. UPPER ABDOMEN: No significant abnormality appreciated. OTHER: No additional significant abnormality is seen. IMPRESSION: 1. Uncomplicated ascending thoracic aortic aneurysm measuring 4.2 cm AP dimension.
--- NOTE | 2022-10-27 17:07 | P.HPIM ---
History of Present Illness H&P Date: 10/26/22 Chief Complaint: Chest pain History and Physical and Discharge Summary: This is 62-year-old gentleman with past medical history of brain aneurysm, gastroesophageal reflux disease osteoarthritis, prostate disorder, ongoing nicotine dependence-smokes 1 pack a day 40+ years, occasional use of marijuana and multiple other medical issues presented to the ER with complaints of chest pain. Family history of CAD, father with multiple MIs, first occurrence at the age of 50. Patient reports for a few weeks he has been having recurrent fluctuating chest pain. Yesterday while working in the garage, involving heavy lifting, chest pain reoccurred, described as tight bilateral chest pressure, radiating through to his left back side, accompanied by shortness of breath,lasting for approximately 45 minutes. Reports back pain is actually worse than chest pain, with significant tenderness/reproducible. While at PCPs office for a prescription refill, reported his symptoms and was directed to the ER. Denies diaphoresis, denies nausea vomiting or diarrhea. Denies abdominal pain. Denies any lightheadedness dizziness or focal deficits. Chest x-ray reporting lower lobe acute infiltrate and/or atelectasis- Denies any recent illness, fevers, cough, chills, congestion. Evaluated by cardiology and scheduled for stress test. EKG reported sinus bradycardia, troponins negative 2, lipid panel noted, CBC, CMP unremarkable. Review of Systems ROS Statement: Those systems with pertinent positive or pertinent negative responses have been documented in the HPI. ROS Other: All systems not noted in ROS Statement are negative. 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 , FREQUENT NIGHT TIME URINATION WITH URGENCY. hx ulcers, diarrhea/loose stool, bulging disk in lower back and neck, lt lazy eye History of Any Multi-Drug Resistant Organisms: None Reported Past Surgical History: Back Surgery, Cholecystectomy, Hernia Repair, Orthopedic Surgery Additional Past Surgical History / Comment(s): EYE SURGERY (CHILD), LEFT ROTATOR CUFF , NECK SURGERY(fusion) WITH PLATE 6 & SCREWS, LEFT INGUINAL HERNIA. EGD, Colonoscopy, umb hernia repair, brain surgery for aneurysm x5 with 2 stents and 10 coils. Past Anesthesia/Blood Transfusion Reactions: No Reported Reaction Past Psychological History: No Psychological Hx Reported Smoking Status: Current every day smoker Past Alcohol Use History: Occasional Additional Past Alcohol Use History / Comment(s): started smoking as a teen, smokes 1/2 ppd Past Drug Use History: Marijuana Additional Drug Use History / Comment(s): occ use of medical marijuana - Past Family History Father Family Medical History: Myocardial Infarction ([place]) Additional Family Medical History / Comment(s): "heart problems" Mother Family Medical History: No Reported History Medications and Allergies Home Medications Medication Instructions Recorded Confirmed Type Viagra (Unknown Dose) 1 tab PO DAILY PRN 07/20/21 10/25/22 History Aspirin EC [Ecotrin Low Dose] 81 mg PO DAILY 10/25/22 10/25/22 History Atorvastatin [Lipitor] 40 mg PO DAILY 10/25/22 10/25/22 History Magnesium Oxide [Mag-Ox] 400 mg PO TID 10/25/22 10/25/22 History Pregabalin [Lyrica] 100 mg PO BID 10/25/22 10/25/22 History Triamcinolone 0.1% Cream [Kenalog 1 applic TOPICAL DAILY PRN 10/25/22 10/25/22 History 0.1% Cream] lisinopriL [Zestril] 10 mg PO DAILY 10/25/22 10/25/22 History cefUROXime axetiL [Ceftin] 500 mg PO BID 5 Days #10 tab 10/26/22 Rx Allergies Allergy/AdvReac Type Severity Reaction Status Date / Time No Known Allergies Allergy Verified 10/25/22 14:35 Physical Exam Vitals: Vital Signs Temp Pulse Pulse Resp BP BP BP 10/26/22 07:00 97.6 F 58 L 16 131/76 10/26/22 03:10 97.9 F 57 L 17 121/78 10/25/22 19:18 97.8 F 61 18 110/69 10/25/22 12:54 98.2 F 67 18 167/95 Pulse Ox 10/26/22 07:00 96 10/26/22 03:10 99 10/25/22 19:18 97 10/25/22 12:54 98 Intake and Output 10/25/22 10/26/22 10/26/22 22:59 06:59 14:59 Other: # Voids 1 1 Weight 81.647 kg PHYSICAL EXAM: VITAL SIGNS: [As above] GENERAL: Sitting up in chair, no acute distress HEENT: Conjunctivae normal. eyes normal. NECK: No JVD. No thyroid enlargement. No LNs CARDIOVASCULAR: S1, S2 regular. No murmur. Positive reproducible tenderness of chest wall and left upper back. RESPIRATION: Unlabored, Breath sounds diminished in the bases. No rhonchi or crackles. No bronchial breathing. ABDOMEN: Soft, nontender . No guarding. no masses palpable. No ascites, No hepatosplenomegaly.Bowel sounds heard. LEGS: No edema. no swelling PSYCHIATRY: Alert and oriented X3, mood and affect normal. NERVOUS SYSTEM: Cranial N 2-12 grossly normal. Moves all 4 limbs. No focal deficits. Strength and sensation grossly intact. Skin: Warm and dry, no rash Results CBC & Chem 7: 10/25/22 12:50 10/25/22 12:50 Labs: Abnormal Lab Results - Last 24 Hours (Table) 10/25/22 10/25/22 Range/Units 12:50 12:50 RBC 4.01 L (4.30-5.90) m/uL MCV 102.0 H (80.0-100.0) fL Creatinine 0.62 L (0.66-1.25) mg/dL Thrombosis Risk Factor Assmnt - Choose All That Apply Any of the Below Risk Factors Present?: No Other Risk Factors: Yes Each Risk Factor Represents 2 Points: Age 61-74 years Thrombosis Risk Factor Assessment Total Risk Factor Score: 2 Thrombosis Risk Factor Assessment Level: Low Risk Assessment and Plan Assessment: Chest wall pressure, not reproducible, appears muscle skeletal, stress test pending History of brain aneurysm Ongoing nicotine dependence Chest x-ray suggestive of possible acute infiltrate or atelectasis, clinically suspect atelectasis secondary to #1, empiric antibiotics initiated. Plan: Continue on current medication regime ,monitoring and symptomatic treatme nt.NPO, just test pending. Patient will be discharged home today in a stable condition with guarded prognosis, pending stress test results, final DC recommendations and clearance per cardiology. Smoking cessation reinforced. Discharge Medication List Viagra (Unknown Dose) 1 tab PO DAILY PRN 07/20/21 [History] Aspirin EC [Ecotrin Low Dose] 81 mg PO DAILY 10/25/22 [History] Atorvastatin [Lipitor] 40 mg PO DAILY 10/25/22 [History] Magnesium Oxide [Mag-Ox] 400 mg PO TID 10/25/22 [History] Pregabalin [Lyrica] 100 mg PO BID 10/25/22 [History] Triamcinolone 0.1% Cream [Kenalog 0.1% Cream] 1 applic TOPICAL DAILY PRN 10/25/22 [History] lisinopriL [Zestril] 10 mg PO DAILY 10/25/22 [History] cefUROXime axetiL [Ceftin] 500 mg PO BID 5 Days #10 tab 10/26/22 [Rx] The impression and plan of care has been dictated as directed. : I performed a history and examination of this patient, discussed the same with the dictator. I agree with the dictator's note ,documented as a scribe. Any additional findings or plans will be noted.
== END 2022-10-26 15:37 | disposition home or self-care (01) ==
LOC: EC 12:28 → 6NMEDSUR 14:23
PROVIDERS: ADMIT Family Medicine; ATTEND Family Medicine
DX: R07.89 Other chest pain (principal); R06.02 Shortness of breath; I71.20 Thoracic aortic aneurysm, without rupture, unspecified; N42.9 Disorder of prostate, unspecified; M54.9 Dorsalgia, unspecified; K21.9 Gastro-esophageal reflux disease without esophagitis; M19.90 Unspecified osteoarthritis, unspecified site; F17.210 Nicotine dependence, cigarettes, uncomplicated; Z79.82 Long term (current) use of aspirin; Z79.02 Long term (current) use of antithrombotics/antiplatelets; Z79.899 Other long term (current) drug therapy; Z98.890 Other specified postprocedural states; Z86.79 Personal history of other diseases of the circulatory system; Z71.6 Tobacco abuse counseling; Z98.1 Arthrodesis status; Z90.49 Acquired absence of other specified parts of digestive tract; Z82.49 Family history of ischemic heart disease and other diseases of the circulatory system
CPT/HCPCS: 96365; 96375; 99285; 36415; 93005; 85379; 80061; 80053; 83735; 84484; 85025; 85610; 85730; 71046; 71260; G0378 ×2; C8930; J0696; C9113; Q9950; Q9967; 93351

== ENCOUNTER 2023-03-29 08:18 | Day surgery (SDC) | payer OTHER ==
[~2023-03-29 08:18] MED LIST changes: -DEXAMETHASONE SOD PHOSPHATE 10 MG/ML 1 ML VIAL IV ONE; -HEPARIN SODIUM,PORCINE 5,000 UNIT/ML 1 ML VIAL SQ ONE; -HYDROmorphone 1 MG/ML 1 ML SYRINGE IVP PRN; -LIDOCAINE 1% 20 ML VIAL (10MG/ML) FOR IV START INTRADERMA PRN; -ONDANSETRON 4 MG/2 ML VIAL IVP ONE; -SCOPOLAMINE 1.5MG/72HR PATCH TRANSDERM ONE; -ceFAZolin 2 GM in SODIUM CHLORIDE 0.9% 100 ML IVPB ONE
[2023-03-29 09:00] VITALS: TEMP 97.6
[2023-03-29] MEDS ORDERED: LIDOCAINE 2% INJ 20 MG/ML (2 ML VIAL) ONE (10:01)
[2023-03-29] MEDS ORDERED: PROPOFOL 10 MG/ML 20 ML VIAL IV ONE (10:01)
--- NOTE | 2023-03-29 10:05 | P.GSHP ---
History of Present Illness H&P Date: 03/29/23 Chief Complaint: Screening colonoscopy This a 62-year-old male presents today for screening colonoscopy. Patient denies a significant GI complaints. 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 , FREQUENT NIGHT TIME URINATION WITH URGENCY. hx ulcers, diarrhea/loose stool, bulging disk in lower back and neck, lt lazy eye aneurysm on ascending aorta History of Any Multi-Drug Resistant Organisms: None Reported Past Surgical History: Back Surgery, Cholecystectomy, Hernia Repair, Orthopedic Surgery Additional Past Surgical History / Comment(s): EYE SURGERY (CHILD), LEFT ROTATOR CUFF , NECK SURGERY(fusion) WITH PLATE 6 & SCREWS, LEFT INGUINAL HERNIA. EGD, Colonoscopy, umb hernia repair, brain surgery for aneurysm x5 with 2 stents and 10 coils. Past Anesthesia/Blood Transfusion Reactions: No Reported Reaction Smoking Status: Current every day smoker - Past Family History Father Family Medical History: Myocardial Infarction ([place]) Additional Family Medical History / Comment(s): "heart problems" Mother Family Medical History: No Reported History Medications and Allergies Home Medications Medication Instructions Recorded Confirmed Type Viagra (Unknown Dose) 1 tab PO DAILY PRN 07/20/21 03/29/23 History RX: Aspirin EC [Ecotrin Low Dose] 81 mg PO DAILY 10/25/22 03/29/23 History RX: Magnesium Oxide [Mag-Ox] 400 mg PO TID 10/25/22 03/29/23 History RX: Pregabalin [Lyrica] 100 mg PO BID 10/25/22 03/29/23 History RX: lisinopriL [Zestril] 10 mg PO DAILY 10/25/22 03/29/23 History Atorvastatin [Lipitor] 40 mg PO DAILY 03/27/23 03/29/23 History Cyclobenzaprine [Flexeril] 10 mg PO HS PRN 03/27/23 03/29/23 History Allergies Allergy/AdvReac Type Severity Reaction Status Date / Time No Known Allergies Allergy Verified 03/29/23 09:00 Surgical - Exam Vital Signs Temp Pulse Resp BP Pulse Ox 97.6 F 71 14 150/84 100 03/29/23 08:58 03/29/23 08:58 03/29/23 08:58 03/29/23 08:58 03/29/23 08:58 - General well developed, well nourished, no distress - Eyes PERRL - ENT normal pinna - Neck no masses - Respiratory normal expansion - Cardiovascular Rhythm: regular - Abdomen Abdomen: soft, non tender Assessment and Plan Assessment: We'll perform screening colonoscopy
--- NOTE | 2023-03-29 10:24 | P.OP ---
Date of Procedure: 03/29/23 Preoperative Diagnosis: Screening colonoscopy Postoperative Diagnosis: Mild diverticulosis Procedure(s) Performed: Colonoscopy Anesthesia: MAC Surgeon: Sigifredo Karimi Pathology: none sent Condition: stable Disposition: PACU Description of Procedure: The patient's placed on the endoscopy table in the lateral position. He received IV sedation. Digital rectal exam was performed. This revealed no ebonized. The flexible colonoscope was then placed patient anus and passed throughout the entire colon. The ileocecal valve was visualized. The cecum, ascending and transverse colon appeared normal. Descending; a few scattered diverticuli. Scope was then brought back the rectum this appeared normal. Scope withdrawn for patient.
[2023-03-29 10:30] VITALS: RESP 16
[2023-03-29 11:02] VITALS: BP 132/89; PULSE 54
== END 2023-03-29 11:38 | disposition home or self-care (01) ==
LOC: ORWHC2ENDO 08:18
PROVIDERS: ATTEND Surgery
DX: Z12.11 Encounter for screening for malignant neoplasm of colon (principal); K57.30 Diverticulosis of large intestine without perforation or abscess without bleeding; K21.9 Gastro-esophageal reflux disease without esophagitis; M19.90 Unspecified osteoarthritis, unspecified site; Z90.49 Acquired absence of other specified parts of digestive tract; Z98.890 Other specified postprocedural states; F17.200 Nicotine dependence, unspecified, uncomplicated; Z82.49 Family history of ischemic heart disease and other diseases of the circulatory system; Z79.82 Long term (current) use of aspirin; Z79.899 Other long term (current) drug therapy
CPT/HCPCS: J2704; J2001; G0121; 45378

== ENCOUNTER → 2024-06-24 | Outpatient (CLI) | payer OTHER ==
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
== END | disposition home or self-care (01) ==
LOC: LABPAT 13:52
PROVIDERS: ATTEND Urology
DX: Z01.818 Encounter for other preprocedural examination (principal); C61 Malignant neoplasm of prostate; R00.1 Bradycardia, unspecified
CPT/HCPCS: 71046; 80048; 85025; 87086; 93005

== ENCOUNTER 2024-07-03 10:00 | Day surgery (SDC) | payer OTHER ==
[2024-07-03] MEDS ORDERED: BUPIVACAINE (PF) 0.25% 30 ML VIAL ONE (10:10)
[2024-07-03] MEDS ORDERED: LACTATED RINGERS 1,000 ML BAG ONE (10:10)
[2024-07-03] MEDS ORDERED: HEPARIN SODIUM,PORCINE 5,000 UNIT/ML 1 ML VIAL ONE (10:23)
[2024-07-03] MEDS ORDERED: DEXAMETHASONE SOD PHOSPHATE 4 MG/ML 1 ML VIAL ONE ×3 (10:23→12:03)
[2024-07-03] MEDS ORDERED: ONDANSETRON 4 MG/2 ML VIAL ONE (10:24)
[2024-07-03] MEDS ORDERED: SODIUM CHLORIDE 0.9% (PF) VIAL 20 ML ONE (10:38)
[2024-07-03] MEDS ORDERED: ROPIVACAINE 5 MG/ML 30 ML VIAL ONE ×2 (10:38→12:03)
[2024-07-03] MEDS ORDERED: fentaNYL (PF) 50 MCG/ML 2 ML AMP ONE ×3 (10:39→12:03)
[2024-07-03] MEDS ORDERED: MIDAZOLAM 2 MG/2 ML VIAL ONE ×2 (10:39→12:03)
[2024-07-03] MEDS ORDERED: GLYCOPYRROLATE 0.2 MG/ML 2 ML VIAL ONE (12:03)
[2024-07-03] MEDS ORDERED: NEOSTIGMINE 1 MG/ML 10 ML VIAL ONE (12:03)
[2024-07-03] MEDS ORDERED: ROCURONIUM 10 MG/ML (5 ML VIAL) IV ONE (12:03)
[2024-07-03] MEDS ORDERED: LIDOCAINE 1% INJ 10MG/ML (20 ML MDV) ONE (12:03)
[2024-07-03] MEDS ORDERED: PHENYLEPHRINE-0.9% NACL SYG 1,000 MCG/10 ML SYRINGE ONE (12:03)
[2024-07-03] MEDS ORDERED: HYDROmorphone (PF) 1 MG/ML ONE (12:03)
[2024-07-03] MEDS ORDERED: SODIUM CHLORIDE 0.9% (PF) 10 ML VIAL ONE (12:03)
[2024-07-03] MEDS ORDERED: PROPOFOL 10 MG/ML 20 ML VIAL IV ONE (12:03)
[2024-07-03] MEDS ORDERED: SUCCINYLCHOLINE CHLORIDE 200 MG/10 ML VIAL IV ONE (12:03)
[2024-07-03] MEDS ORDERED: HYDROcodone/APAP 5-325MG 1 EACH TAB ONE ×2 (19:57)
[2024-07-04] MEDS ORDERED: SODIUM CHLORIDE 0.9% 1,000 ML BAG ONE (00:24)
[2024-07-04] MEDS ORDERED: KETOROLAC 15 MG/ML 1 ML VIAL ONE ×6 (00:26→11:40)
[2024-07-04] MEDS ORDERED: HYDROcodone/APAP 5-325MG 1 EACH TAB ONE ×6 (03:38→11:48)
[2024-07-04] MEDS ORDERED: HEPARIN SODIUM,PORCINE 5,000 UNIT/ML 1 ML VIAL ONE (08:38)
--- NOTE | 2024-07-11 15:55 | DS ---
DISCHARGE SUMMARY ADMITTING DIAGNOSIS: Prostate cancer. PROCEDURE: Radical prostatectomy, robot-assisted, Dr. Salcedo. HISTORY: Mr. Denny is 63. He underwent a robotic-assisted radical prostatectomy on 07/[address] Salcedo without difficulty. He did well overnight. His urine is clear. His abdomen is soft. The wound looks good. His pain is under control. He is eating a diet and ambulated. He is ready for discharge home. He will resume his home medications. He has been given a prescription for [place]. His condition is good. His activity is light. He will be seen in the office on 07/14/2024. Postop instructions were given. MMODL / IJN: [id number] /
== END 2024-07-04 11:30 | disposition home or self-care (01) ==
LOC: OR 10:00 → 4SSUR 16:33 → UNDOADMIN 16:33 → OR 07-04 11:30 → UNDODISIN 07-04 11:45
PROVIDERS: ATTEND Urology
DX: C61 Malignant neoplasm of prostate (principal); I10 Essential (primary) hypertension; E78.5 Hyperlipidemia, unspecified; K21.9 Gastro-esophageal reflux disease without esophagitis; F17.210 Nicotine dependence, cigarettes, uncomplicated; Z86.73 Personal history of transient ischemic attack (TIA), and cerebral infarction without residual deficits; Z79.82 Long term (current) use of aspirin; Z79.899 Other long term (current) drug therapy
CPT/HCPCS: 64999; 86850; 86900; 86901; 88309

== ENCOUNTER → 2024-12-09 | Outpatient (CLI) | payer OTHER ==
--- NOTE | 2024-12-09 17:40 | CTL ---
EXAMINATION TYPE: CT Low Dose Lung DATE OF EXAM: 12/09/2024 3:22 PM COMPARISON: 10/26/2022 SCREENING VISIT: Initial CT DIAGNOSTIC QUALITY: Limited, but interpretable CLINICAL INDICATION: Male, 64 years old with history of Z12.2 ENCNTR SCREEN FO F17.210 NICOTINE DEPEN DENCE, PERSONAL HX OF NICOTINE DEPENDENCE 1PPD X 50 YEARS CURRENT SMOKER, Lung cancer screening, Hist ory of tobacco use. TECHNIQUE: Low dose computed tomography scan was performed through the chest at 1 mm thick sections a nd reconstructed images in the coronal plane at 1 mm thick sections. Contrast used: mL of , (none if empty) Oral contrast used: (none if empty) CT DLP: 75 mGycm, Automated exposure control for dose reduction was used. CT CTDI: 2.37 mGy, Automated exposure control for dose reduction was used. FINDINGS: LUNG NODULES: None. LUNGS: COPD: Severity: None Fibrosis: Severity: None Lymph nodes: None Other findings: None RIGHT PLEURAL SPACE: Effusion: None Calcification: None Thickening: None Pneumothorax: None LEFT PLEURAL SPACE: Effusion: None Calcification: None Thickening: None Pneumothorax: None HEART: Other: Ascending thoracic aorta at the level the main pulmonary artery measures 4.1 cm. The main pul monary artery at the bifurcation measures2.5 cm. Ascending thoracic aortic aneurysm is stable. Heart Size: Normal Coronary calcification: Mild Pericardial effusion: None OTHER FINDINGS: Upper abdomen: Normal Bony thorax: Normal Supraclavicular region: Normal IMPRESSION: Stable ascending thoracic aortic aneurysm 4.1 cm. 2. No suspicious changes to suggest primary or metastatic neoplasm. FOLLOW UP CT CHEST RECOMMENDATION: Low-dose CT chest one year CT LUNG RAD: Lung-Rad 2 Benign Appearance or Behavior [facility], , 12/09/2024 5:38 PM
== END | disposition home or self-care (01) ==
LOC: RADCTMAIN 14:53
PROVIDERS: ATTEND Family Medicine
DX: Z12.2 Encounter for screening for malignant neoplasm of respiratory organs (principal); F17.210 Nicotine dependence, cigarettes, uncomplicated; I71.21 Aneurysm of the ascending aorta, without rupture
CPT/HCPCS: 71271